=== PATIENT | female | born 1935 | race Caucasian/White ===

== ENCOUNTER 2017-11-22 12:20 | Inpatient (IN) ==
[2017-11-27] MEDS ORDERED: Naloxone Inj 0.4 MG/ML Vial IV.PUSH PRN
[2017-11-27] MEDS ORDERED: Labetalol HCl Inj 100 MG/20 ML Vial IV.PUSH PRN
[2017-11-27] MEDS ORDERED: Morphine Inj 4 MG/ML Vial IV.PUSH PRN ×2
[2017-11-27] MEDS: Famotidine 20 MG Tablet PO SCH ×3 (05:31→20:08)
[2017-11-27] MEDS: Gabapentin 300 MG Capsule PO SCH ×2 (09:09→20:07)
[2017-11-27] MEDS: KCL 20 mEq/NACL 0.45% Inj 1,000 ML IV.CONT SCH ×3 (10:05→20:08)
[2017-11-27] MEDS ORDERED: levETIRAcetam 500mg/100mL Inj 100 ML IV.SIG SCH (11:45)
[2017-11-27] MEDS: Lidocaine 5% Patch T-DERMAL SCH (18:28)
--- NOTE | 2017-11-27 21:33 | P.PNNS ---
Subjective Interval history: Status post evacuation of bilateral subdural hematoma, bur hole, 11/23/2017 11/27/2017: No new complaints. No headache nausea vomiting. Tolerating diet Physical Exam Vital signs: Vital Signs 11/27/17 00:00 11/27/17 01:00 11/27/17 02:00 Temperature 100.4 F H Pulse Rate 64 64 66 Respiratory Rate 23 21 20 Blood Pressure 120/56 L 119/56 L 119/55 L Pulse Oximetry 96 96 97 11/27/17 03:00 11/27/17 04:00 11/27/17 05:00 Temperature 98.7 F Pulse Rate 64 62 68 Respiratory Rate 20 21 21 Blood Pressure 111/53 L 139/63 133/64 Pulse Oximetry 97 98 96 11/27/17 06:00 11/27/17 07:00 11/27/17 08:00 Temperature 98.5 F Pulse Rate 66 68 70 Respiratory Rate 21 30 H 18 Blood Pressure 113/56 L 133/61 142/66 H Pulse Oximetry 94 L 96 97 11/27/17 09:21 11/27/17 12:45 11/27/17 15:30 Temperature 98.9 F Pulse Rate 71 Respiratory Rate 18 20 22 Blood Pressure 116/56 L Pulse Oximetry 97 11/27/17 16:00 11/27/17 20:00 Temperature 98.6 F 99.2 F Pulse Rate 88 82 Respiratory Rate 18 24 Blood Pressure 116/57 L 100/63 Pulse Oximetry 97 97 Intake & Output 11/27/17 11/27/17 11/28/17 06:59 18:59 06:59 Intake Total 840 / 840 Output Total 800 / 800 1100 / 1100 Balance -800 / -800 -260 / -260 Intake: Oral 840 / 840 Output: Urine Amount (Catheter) 800 / 800 1100 / 1100 Female External 800 / 800 1100 / 1100 Other: # Bowel Movements 0 Narrative: Scalp incisions dry and intact Respirations clear nonlabored Heart rate regular Abdomen soft nontender No significant extremity edema No significant skin lesion or rash Awake and alert conversant appropriate. Speech clear Follows commands well Extraocular movements intact Sensory to light touch and motor within normal limits all extremities - Urinary Catheter Management Female External Cath placed during this visit: no Assessment and Plan - Assessment (1) Subdural hematoma, acute Code(s): S06.5X9A - Traumatic subdural hemorrhage with loss of consciousness of unspecified duration, initial encounter Status: Acute - Plan Findings discussed with patient Transfer to regular floor Advance diet and activity as tolerated Continue physical therapy She will need inpatient rehabilitation. She has developed some significant gait problems over the past year or 2 with some limited motion in the right lower extremity, significant bilateral knee arthropathy.
[2017-11-28] MEDS: KCL 20 mEq/NACL 0.45% Inj 1,000 ML IV.CONT SCH (01:43)
--- NOTE | 2017-11-28 05:39 | XR ---
EXAM DATE: 11/28/2017 5:34 AM EDT AGE/SEX: 82 years / Female INDICATIONS: Cough and congestion. CLINICAL DATA: This is the patient's initial encounter. Patient reports that signs and symptoms have been present for 1 day and indicates a pain score of 0/10. MEDICAL/SURGICAL HISTORY: . Deep venous thrombosis. Gastroesophageal reflux disease. Neuropathy . None. COMPARISON: No prior exams available for comparison. FINDINGS: A single AP view of the chest demonstrates the lungs to be symmetrically aerated without evidence of mass, infiltrate or effusion. The cardiomediastinal contours are unremarkable. Moderate degenerative changes in the thoracic spine with mild curvature of the midthoracic spine convex to the right. CONCLUSION: Lungs are clear. Electronically signed by: Buster Johnson MD 11/28/2017 5:37 AM EDT
[2017-11-28 07:37] LABS: Hematocrit 34.2 % (35.0-46.0); Hemoglobin 11.2 gm/dL (11.6-15.3); Mean Corpuscular HGB Conc 32.7 % (32.0-36.0); Mean Corpuscular Hemoglobin 30.3 pg (27.0-34.0); Mean Corpuscular Volume 92.9 fL (80.0-100.0); Mean Platelet Volume 8.8 fL (7.0-11.0); Platelet Count 164 th/mm3 (150-450); Red Blood Count 3.68 mil/mm3 (4.00-5.30); Red Cell Distribution Width 14.6 % (11.6-17.2); White Blood Count 8.1 th/mm3 (4.0-11.0)
[2017-11-28] MEDS: Gabapentin 300 MG Capsule PO SCH (09:00)
[2017-11-28] MEDS: Famotidine 20 MG Tablet PO SCH (09:01)
[2017-11-28 09:13] LABS: Anion Gap 7 meq/L (5-15); Blood Urea Nitrogen 12 mg/dL (7-18); Calcium 8.5 mg/dL (8.5-10.1); Carbon Dioxide 28.8 meq/L (21.0-32.0); Chloride 107 meq/L (98-107); Glomerular Filtration Rate Greater Than 89 mL/min (>89); Glucose,Random 116 mg/dL (74-106); Potassium 4.2 meq/L (3.5-5.1); Sodium 143 meq/L (136-145)
--- NOTE | 2017-11-28 10:40 | P.PNNS ---
Subjective Interval history: 11/28/2017: Patient has no complaint of headache nausea vomiting. She is tolerating diet well. She complains of some soreness along her gluteal-sacral region. Persistent primarily left knee pain which is chronic. She states that she has had chronic difficulty ambulating due to her knees, but now cannot really stand or walk at all. Physical Exam Vital signs: Vital Signs 11/27/17 12:45 11/27/17 15:30 11/27/17 16:00 Temperature 98.9 F 98.6 F Pulse Rate 71 88 Respiratory Rate 20 22 18 Blood Pressure 116/56 L 116/57 L Pulse Oximetry 97 97 11/27/17 20:00 11/27/17 22:11 11/28/17 00:00 Temperature 99.2 F 98.6 F Pulse Rate 82 63 Respiratory Rate 24 18 20 Blood Pressure 100/63 102/55 L Pulse Oximetry 97 95 11/28/17 04:00 11/28/17 09:00 Temperature 97.8 F Pulse Rate 63 Respiratory Rate 18 20 Blood Pressure 118/54 L Pulse Oximetry 99 Intake & Output 11/27/17 11/28/17 11/28/17 18:59 06:59 18:59 Intake Total 945 / 945 1220 / 1220 Output Total 1100 / 1100 1100 / 1100 Balance -155 / -155 120 / 120 Intake: IV 105 / 105 500 / 500 Potassium Chlor 20 mEq/NACL 0. 500 / 500 45% Inj 1,000 ML @ 100 mls/hr IV.CONT .Q10H SHARON Rx#:[id number] Keppra Inj 500 MG In NS Inj 100 105 / 105 ML @ 400 mls/hr IV.SIG Q12H SHARON Rx#:[id number] Oral 840 / 840 720 / 720 Output: Urine 900 / 900 Urine Amount (Catheter) 1100 / 1100 200 / 200 Female External 1100 / 1100 200 / 200 Other: # Bowel Movements 0 Narrative: The scalp incisions are dry. Steri-Strips intact. Caroline intact. No drainage. Respirations are clear and regular Abdomen soft No lower extremity edema Persistent right and left knee contracture with pain with movement. She keeps her right hip and knee internally rotated. Awake and alert conversant appropriate. Speech clear Extraocular movements intact Good strength all extremities except as diminished by her knee pain and contractures. - Urinary Catheter Management Female External Cath placed during this visit: no Assessment and Plan - Assessment (1) Subdural hematoma, acute Code(s): S06.5X9A - Traumatic subdural hemorrhage with loss of consciousness of unspecified duration, initial encounter Status: Acute - Plan Findings discussed with patient She has been transferred to regular floor Advance diet and activity as tolerated Continue physical therapy She will need inpatient rehabilitation. She has developed some significant gait problems over the past year or 2 with some limited motion in the right lower extremity, significant bilateral knee arthropathy. She will eventually need orthopedic evaluation. She apparently was seen initially by an orthopedic surgeon on the [facility] but needs to establish with a surgeon locally.
--- NOTE | 2017-11-28 18:07 | P.PNIM ---
Subjective Interval history: c/o right knee pain. Denies cp/sob, headache Physical Exam Vital signs: Vital Signs 11/27/17 20:00 11/27/17 22:11 11/28/17 00:00 Temperature 99.2 F 98.6 F Pulse Rate 82 63 Respiratory Rate 24 18 20 Blood Pressure 100/63 102/55 L Pulse Oximetry 97 95 11/28/17 04:00 11/28/17 08:00 11/28/17 09:00 Temperature 97.8 F 98.9 F Pulse Rate 63 65 Respiratory Rate 18 20 20 Blood Pressure 118/54 L 151/67 H Pulse Oximetry 99 96 11/28/17 12:00 11/28/17 14:17 11/28/17 16:00 Temperature 98.7 F 98.8 F Pulse Rate 66 75 Respiratory Rate 20 7 L 20 Blood Pressure 115/61 110/57 L Pulse Oximetry 95 96 Intake & Output 11/27/17 11/28/17 11/28/17 18:59 06:59 18:59 Intake Total 945 / 945 1325 / 1325 1200 / 1200 Output Total 1100 / 1100 1100 / 1100 Balance -155 / -155 225 / 225 1200 / 1200 Intake: IV 105 / 105 605 / 605 Potassium Chlor 20 mEq/NACL 0. 500 / 500 45% Inj 1,000 ML @ 100 mls/hr IV.CONT .Q10H SHARON Rx#:[id number] Keppra Inj 500 MG In NS Inj 100 105 / 105 105 / 105 ML @ 400 mls/hr IV.SIG Q12H SHARON Rx#:[id number] Oral 840 / 840 720 / 720 1200 / 1200 Output: Urine 900 / 900 Urine Amount (Catheter) 1100 / 1100 200 / 200 Female External 1100 / 1100 200 / 200 Other: # Bowel Movements 0 - Urinary Catheter Management Female External Cath placed during this visit: no Results - Labs CBC & Chem 7: 11/28/17 07:07 11/28/17 07:07 Laboratory Results - last 24 hr 11/28/17 11/28/17 07:07 07:07 WBC 8.1 RBC 3.68 L Hgb 11.2 L Hct 34.2 L MCV 92.9 MCH 30.3 MCHC 32.7 RDW 14.6 Plt Count 164 MPV 8.8 Sodium 143 Potassium 4.2 Chloride 107 Carbon Dioxide 28.8 Anion Gap 7 BUN 12 Creatinine 0.51 Estimated GFR Greater than 89 Random Glucose 116 H Calcium 8.5 - Imaging Impressions Chest X-Ray 11/28/17 00:00 CONCLUSION: Lungs are clear. Head CT 11/28/17 00:00 CONCLUSION: 1. Improving postoperative changes compared to the prior examination. 2. There continues to be bilateral subdural collections, right greater than left. 8 mm of separation on the right and 7 mm of separation on the left. 3. No new areas of acute hemorrhage are demonstrated. Assessment and Plan - Plan 82 yo female who is transferred from [facility] emergency department to [facility] due to bilateral subdural hematomas. she states that she has had several falls over the last 2-3 months. Says she fell 2 months ago and had scalp laceration repaired. She says she has had increasing difficulty with ambulating and "slips" often. Says she lives alone. She denies headache, CP, SOB, dizziness, syncope, seizure, n/v. 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 INR upon presentation was 3.1. She has received K Centra with normalization of INR. She is admitted to Dr. Dueñas who plans for surgical evacuation of bilateral hematoma. Bilateral subacute subdural hematomas The patient was admitted to the intensive care unit and monitored initially by the atm servicer along with neurosurgery. Placed on Keppra 500 mg IV every 12 hours for seizure prophylaxis. CT cervical spine without any acute abnormalities. It only showed grade 1 anterior listhesis of C4 on C5. The patient status post bilateral bur hole on 11/23. Patient initially coagulopathic with an INR of 3.1 status post K Centra with normalization of the INR. Continue PT/OT. Chronic low back pain Oxycodone as needed for pain. Hold Ultram as this can lower seizure threshold. PT consulted. Resume Neurontin 900 mg twice daily home dose Left knee pain The due to severe also arthritis of the right knee. The patient had an x-ray of bilateral knees which showed chronic degenerative changes likely secondary to osteoarthritis. Consult orthopedic surgery placed by neurosurgery. Likely falls likely bilateral also arthritis is contributing to patient's multiple falls. Acute posthemorrhagic anemia. Patient's hemoglobin dropped down to 11.5 from 13.3 prior to surgical procedure. Suspect acute postop anemia. Hemoglobin remains stable, continue to monitor CBC. Remote history of DVT and PE. The patient was on chronic at the [facility] with warfarin which has been discontinued. The patient is status post K Centra 25 U/kg as well as vitamin K 10 mg IV. GI: P.o. diet as tolerated. FEN/RENAL: Voiding ID: UA negative. No leukocytosis or fever. Monitor for signs and symptoms of infection. HEME: Chronic anticoagulation with warfarin, reportedly for remote history of PE and DVT Warfarin on hold. Received K Centra 25 units/kg. Received vitamin K 10 mg IV. Last INR on 11/23 is 1.1. Code Status: Full code Discussed Condition With: Patient, RN. Discharge Planning: DC pending orthopedic surgery evaluation ordered by neurosurgery.
[2017-11-28] MEDS: Lidocaine 5% Patch T-DERMAL SCH (18:16)
[2017-11-29] MEDS: Gabapentin 300 MG Capsule PO SCH ×3 (00:32→21:43)
[2017-11-29] MEDS: Famotidine 20 MG Tablet PO SCH ×3 (00:32→21:44)
--- NOTE | 2017-11-29 12:49 | P.PNNS ---
Subjective Interval history: This morning the patient is awake and alert sitting up in bed. She is on her cellphone talking with a friend. She denies any headache, dizziness, double or blurry vision, nausea or vomiting. She does say it is sore at the surgical incisions. She continues to have pain to the knees and difficulty with lower extremity movement. <Jun Toledo E - Last Filed: 11/29/17 12:28> Physical Exam Vital signs: Vital Signs 11/28/17 14:17 11/28/17 16:00 11/28/17 20:00 Temperature 98.8 F 98.5 F Pulse Rate 75 68 Respiratory Rate 7 L 20 18 Blood Pressure 110/57 L 117/61 Pulse Oximetry 96 95 11/29/17 00:00 11/29/17 04:00 11/29/17 08:00 Temperature 98.4 F 98.4 F 97.7 F Pulse Rate 74 56 L 88 Respiratory Rate 18 18 20 Blood Pressure 124/62 125/60 Pulse Oximetry 96 97 96 11/29/17 08:02 Temperature Pulse Rate Respiratory Rate 18 Blood Pressure Pulse Oximetry Intake & Output 11/28/17 11/29/17 11/29/17 18:59 06:59 18:59 Intake Total 1200 / 1200 Balance 1200 / 1200 Intake: Oral 1200 / 1200 Narrative: GENERAL: Awake & alert sitting up in bed talking on her cellphone. Affect normal. Readily interacts. No apparent distress. HEENT: Normocephalics. Well approximated bilateral tiarra hole surgical incisions w/dai intact, TC drain insertion site w/steri-strips intact, no drainage, erythema or streaking noted to incisions or insertion site. PERRLA 2 mm brisk, EOMI. MMM & pink, tongue midline to protrusion. MUSCULOSKELETAL: Moves BUE w/o difficulty. Decreased ROM L>R to BLE, knees TTP. NEUROLOGICAL: AAOx3. Speech clear & appropriate. Follows simple commands w/o difficulty. CN II through XII appear grossly intact. Motor strength normal to BUE. Motor strength RLE 4 to 4+/5. LLE motor strength is iliopsoas 1 to 1+/5, quadriceps 1+/5, hamstring 1+ to 2/5, and distally 3/5, patient does have pain w /testing. - Urinary Catheter Management Female External Cath placed during this visit: no <Patrice Toledoyessi Harris - Last Filed: 11/29/17 12:28> Vital signs: Vital Signs 11/29/17 00:00 11/29/17 04:00 11/29/17 08:00 Temperature 98.4 F 98.4 F 97.7 F Pulse Rate 74 56 L 88 Respiratory Rate 18 18 20 Blood Pressure 124/62 125/60 Pulse Oximetry 96 97 96 11/29/17 08:02 11/29/17 12:00 11/29/17 12:45 Temperature 96.9 F L Pulse Rate 63 Respiratory Rate 18 20 Blood Pressure 119/55 L Pulse Oximetry 97 97 11/29/17 13:16 11/29/17 16:00 Temperature 97.6 F Pulse Rate 66 Respiratory Rate 18 20 Blood Pressure 114/56 L Pulse Oximetry 98 Intake & Output 11/29/17 11/29/17 11/30/17 06:59 18:59 06:59 Other: Bladder Irrigation Fluid - Amount Drained Female External 500 # Bowel Movements 0 - Urinary Catheter Management Female External Cath placed during this visit: no <Julian Dueñas - Last Filed: 11/29/17 20:06> Assessment and Plan - Assessment (1) Subdural hematoma, acute Code(s): S06.5X9A - Traumatic subdural hemorrhage with loss of consciousness of unspecified duration, initial encounter Status: Acute - Plan Findings discussed with patient Reviewed CT brain images & report, continued improvement post-operatively, residual subdural fluid R>L, no new haemorrhage. Continue physical therapy. Orthopaedic Surgery evaluation pending. Patient is able to be discharged for inpatient rehab once arrangements made. <Jun Toledo - Last Filed: 11/29/17 12:28> - Assessment (1) Subdural hematoma, acute Code(s): S06.5X9A - Traumatic subdural hemorrhage with loss of consciousness of unspecified duration, initial encounter Status: Acute - Attending Attestation The exam, history, and the medical decision-making described in the above note were completed with the assistance of the mid-level provider. I reviewed and agree with the findings presented. I attest that I had a [id number] encounter with the patient on the same day, and personally performed and documented my assessment and findings in the medical record. Patient remains awake and alert today. No significant headache. She has not had a bowel movement in the past few days. Additional medications prescribed for medicine service Otherwise stable for discharge to inpatient rehabilitation from neurosurgery standpoint. She needs a follow-up CT scan of the head in a couple of weeks. <Julian Dueñas - Last Filed: 11/29/17 20:06>
[2017-11-29] MEDS ORDERED: Polyethylene Glycol 3350 17 GM Packet PO ONE (14:35)
[2017-11-29] MEDS ORDERED: Bisacodyl 10 MG Supp RECTAL PRN (14:35)
--- NOTE | 2017-11-29 15:50 | P.DS ---
Date of admission: 11/22/17 15:46 Primary care physician: Dianna Jimenez MD Attending physician on discharge: Tee Carmen Anticipated date of discharge: 11/29/17 Brief History from admission: The patient is an 82-year-old female who reportedly has experienced several recent falls. She presented to the emergency room today with complaint of approximately 3 days of neck pain and bilateral knee pain with difficulty ambulating. She apparently was seen at an outside hospital yesterday for similar complaints. The patient is apparently normally active and independent. She is a somewhat poor historian. She states that she has been using a walker for 3 days. She indicates problems with chronic back and knee pain. She does not complain of any significant hip pain. No complaint of significant headache, dizziness. Positive generalized fatigue. Patient has limited range of motion of the right greater than left lower extremity on exam. She is very vague regarding how long this is been a problem for her. She does not seem to indicate chronic problems with ambulation. DS: Diagnosis - Discharge Diagnosis (1) Subacute subdural hematoma Status: Acute (2) Osteoarthritis of knees, bilateral Status: Chronic (3) Postoperative anemia due to acute blood loss Status: Resolved DS: Summary Hospital Course: 82 yo female who is transferred from [facility] emergency department to [facility] due to bilateral subdural hematomas. she states that she has had several falls over the last 2-3 months. Says she fell 2 months ago and had scalp laceration repaired. She says she has had increasing difficulty with ambulating and "slips" often. Says she lives alone. She denies headache, CP, SOB, dizziness, syncope, seizure, n/v. 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 INR upon presentation was 3.1. She has received K Centra with normalization of INR. She is admitted to Dr. Dueñas who plans for surgical evacuation of bilateral hematoma. Bilateral subacute subdural hematomas The patient was admitted to the intensive care unit and monitored initially by the car head liner installer along with neurosurgery. Placed on Keppra 500 mg IV every 12 hours for seizure prophylaxis. CT cervical spine without any acute abnormalities. It only showed grade 1 anterior listhesis of C4 on C5. The patient status post bilateral bur hole on 11/23. Patient initially coagulopathic with an INR of 3.1 status post K Centra with normalization of the INR. PT/OT ordered. Chronic low back pain Oxycodone as needed for pain. Hold Ultram as this can lower seizure threshold. PT consulted. Resumed Neurontin 900 mg twice daily home dose Left knee pain The due to severe also arthritis of the right knee. The patient had an x-ray of bilateral knees which showed chronic degenerative changes likely secondary to osteoarthritis. Consult orthopedic surgery placed by neurosurgery. Likely falls likely bilateral also arthritis is contributing to patient's multiple falls. Acute posthemorrhagic anemia. Patient's hemoglobin dropped down to 11.5 from 13.3 prior to surgical procedure. Suspect acute postop anemia. Hemoglobin remains stable, continue to monitor CBC. Remote history of DVT and PE. The patient was on chronic at the [facility] with warfarin which has been discontinued. The patient is status post K Centra 25 U/kg as well as vitamin K 10 mg IV. GI: P.o. diet as tolerated. ID: UA negative. No leukocytosis or fever. Monitor for signs and symptoms of infection. Chronic anticoagulation with warfarin, reportedly for remote history of PE and DVT Warfarin on hold. Received K Centra 25 units/kg. Received vitamin K 10 mg IV. Last INR on 11/23 is 1.1. - Time Spent with Patient Total time spent providing and/or coordinating discharge services: Exam Vital signs: Vital Signs 11/28/17 16:00 11/28/17 20:00 11/29/17 00:00 Temperature 98.8 F 98.5 F 98.4 F Pulse Rate 75 68 74 Respiratory Rate 20 18 18 Blood Pressure 110/57 L 117/61 Pulse Oximetry 96 95 96 11/29/17 04:00 11/29/17 08:00 11/29/17 08:02 Temperature 98.4 F 97.7 F Pulse Rate 56 L 88 Respiratory Rate 18 20 18 Blood Pressure 124/62 125/60 Pulse Oximetry 97 96 11/29/17 12:00 11/29/17 12:45 11/29/17 13:16 Temperature 96.9 F L Pulse Rate 175 H Respiratory Rate 20 18 Blood Pressure 119/55 L Pulse Oximetry 97 97 Intake & Output 11/28/17 11/29/17 11/29/17 18:59 06:59 18:59 Intake Total 1305 / 1305 Balance 1305 / 1305 Intake: IV 105 / 105 Keppra Inj 500 MG In NS Inj 100 105 / 105 ML @ 400 mls/hr IV.SIG Q12H SHARON Rx#:[id number] Oral 1200 / 1200 Narrative: GENERAL: Awake & alert sitting up in bed . Affect normal. Readily interacts. No apparent distress. HEENT: Normocephalics. Well approximated bilateral tiarra hole surgical incisions w/dai intact, TC drain insertion site w/steri-strips intact, no drainage, erythema or streaking noted to incisions or insertion site. PERRLA 2 mm brisk, EOMI. MMM & pink, tongue midline to protrusion. MUSCULOSKELETAL: Moves BUE w/o difficulty. Decreased ROM L>R to BLE, knees TTP. NEUROLOGICAL: AAOx3. Speech clear & appropriate. Follows simple commands w/o difficulty. CN II through XII appear grossly intact. Motor strength normal to BUE. Motor strength RLE 4 to 4+/5. LLE motor strength is iliopsoas 1 to 1+/5, quadriceps 1+/5, hamstring 1+ to 2/5, and distally 3/5, patient does have pain w /testing. Results Procedures completed during hospitalization: Bilateral tiarra hole for evacuation subdural hematoma - Impressions ITS Impressions Chest X-Ray 11/28/17 00:00 CONCLUSION: Lungs are clear. Head CT 11/28/17 00:00 CONCLUSION: 1. Improving postoperative changes compared to the prior examination. 2. There continues to be bilateral subdural collections, right greater than left. 8 mm of separation on the right and 7 mm of separation on the left. 3. No new areas of acute hemorrhage are demonstrated. Cervical spine x-ray. Degenerative changes. Cerebellar tonsils normal anatomic position. Hip pelvis x-ray. Degenerative changes at the hips been worse on the right. Bilateral knee x-rays Degenerative changes. Lumbar spine MRI. Degenerative changes in the lumbar spine with a generous spinal canal. No evidence of compression fracture. Thoracic spine MRI. Number. Thoracic cord without stenosis or syrinx. Cervical spine CT. No acute cervical spine abnormality is identified. Grade 1 anterolisthesis of C4 on C5 secondary to facet arthrosis. No canal stenosis identified. There are multiple areas of neural foraminal narrowing identified. Head CT on admission. Findings consistent with large bilateral subacute subdural hematomas measuring 1.4 cm on the right and 1.1 cm on the left. No significant subfalcine shift or uncal herniation although lateral ventricles are very small in size bilaterally. Discharge Plan - Discharge Disposition Patient Disposition: [facility] Rehab Inpatient - Discharge Condition Condition: Stable - Discharge Order Discharge Orders: Discharge Order (Routine); Ordered 11/29/17 Ordered By: Tee Carmen - Discharge Details Anticipated Discharge Date: 11/29/17 - Physicians Team Primary Care Provider: Dianna Jimenez Attending Provider: Julian Dueñas Other Providers: Rodrick More MD ; Sheila Mares MD ; Shaka Stewart MD ; Tee Carmen MD - Rxs /Orders / Referrals /Forms Prescriptions: New levetiracetam [Keppra] 500 mg Tablet 500 mg PO BID Qty: 60 RF: 0 Continue gabapentin 300 mg Tablet Extended Release 24 Hr 900 mg PO BID oxycodone-acetaminophen 5-325 mg Tablet 1 tab PO Q4H PRN (Reason: Pain) ranitidine HCl 150 mg Tablet 150 mg PO BID Discontinued diclofenac sodium 75 mg Tablet,Delayed Release (Dr/Ec) 75 mg PO DAILY tramadol 50 mg Tablet 50 mg PO BID PRN (Reason: Pain) warfarin 5 mg Tablet 5 mg PO DAILY Referrals: Dianna Jimenez MD [Primary Care Provider] - See Instructions ( Please call the physician's office to book the appointment to be seen within [1 week]. The patient will need orthopedic surgery evaluation if not seen during rehab stay.) Julian Dueñas MD [NEUROSURGERY] - See Instructions ( Please call the physician's office to book the appointment to be seen within [1 week].) - Discharge Instructions Additional Instructions: Patient will need an orthopedic surgery consultation or referral if not seen prior to DC.
[2017-11-29] MEDS: Lidocaine 5% Patch T-DERMAL SCH (17:12)
[2017-11-29] MEDS: levETIRAcetam 500 MG Tablet PO SCH (21:44)
[2017-11-29] MEDS: Senna/Docusate Sodium 8.6/50 MG Tablet PO SCH (21:44)
[2017-11-30] MEDS: KCL 20 mEq/NACL 0.45% Inj 1,000 ML IV.CONT SCH ×5 (05:22→19:11)
[2017-11-30] MEDS: Famotidine 20 MG Tablet PO SCH ×2 (09:28→20:29)
[2017-11-30] MEDS: Senna/Docusate Sodium 8.6/50 MG Tablet PO SCH ×2 (09:28→20:29)
[2017-11-30] MEDS: levETIRAcetam 500 MG Tablet PO SCH ×2 (09:28→20:29)
[2017-11-30] MEDS: Gabapentin 300 MG Capsule PO SCH ×2 (09:29→20:29)
--- NOTE | 2017-11-30 16:15 | P.PNNS ---
Subjective Interval history: No new complaints. No headache No dizziness Still no bowel movement Physical Exam Vital signs: Vital Signs 11/29/17 20:00 11/30/17 00:00 11/30/17 04:00 Temperature 98.5 F 98.0 F 97.6 F Pulse Rate 73 65 68 Respiratory Rate 20 16 16 Blood Pressure 120/55 L 122/60 131/63 Pulse Oximetry 95 97 99 11/30/17 05:00 11/30/17 08:00 11/30/17 12:00 Temperature 98.4 F 98.1 F Pulse Rate 63 55 L 73 Respiratory Rate 16 17 Blood Pressure 136/74 126/72 Pulse Oximetry 98 98 Intake & Output 11/29/17 11/30/17 11/30/17 18:59 06:59 18:59 Output Total 700 / 700 Balance -700 / -700 Output: Urine 700 / 700 Other: Bladder Irrigation Fluid - Amount Drained Female External 500 # Bowel Movements 0 Narrative: Awake and alert oriented conversant appropriate Speech clear Extraocular movements intact Facial motor movements symmetric Sensation intact light touch all extremities Moves all extremities with good strength to command Scalp incision remains dry and intact - Urinary Catheter Management Female External Cath placed during this visit: no Assessment and Plan - Assessment (1) Subdural hematoma, acute Code(s): S06.5X9A - Traumatic subdural hemorrhage with loss of consciousness of unspecified duration, initial encounter Status: Acute - Plan Findings discussed with patient again today Reviewed CT brain results with patient: Continued improvement post-operatively, residual subdural fluid R>L, no new haemorrhage. Continue physical therapy. Additional medications for constipation. Patient is able to be discharged for inpatient rehab once arrangements made.
[2017-11-30] MEDS ORDERED: Polyethylene Glycol 3350 17 GM Packet PO ONE (16:46)
--- NOTE | 2017-11-30 16:53 | P.PNIM ---
Subjective Interval history: c/o constipation. Denies dental pain, nausea or vomiting. Physical Exam Vital signs: Vital Signs 11/29/17 20:00 11/30/17 00:00 11/30/17 04:00 Temperature 98.5 F 98.0 F 97.6 F Pulse Rate 73 65 68 Respiratory Rate 20 16 16 Blood Pressure 120/55 L 122/60 131/63 Pulse Oximetry 95 97 99 11/30/17 05:00 11/30/17 08:00 11/30/17 12:00 Temperature 98.4 F 98.1 F Pulse Rate 63 55 L 73 Respiratory Rate 16 17 Blood Pressure 136/74 126/72 Pulse Oximetry 98 98 Intake & Output 11/29/17 11/30/17 11/30/17 18:59 06:59 18:59 Output Total 700 / 700 Balance -700 / -700 Output: Urine 700 / 700 Other: Bladder Irrigation Fluid - Amount Drained Female External 500 # Voids 1 # Bowel Movements 0 Narrative: GENERAL: Awake & alert sitting up in bed . Affect normal. Readily interacts. No apparent distress. HEENT: Normocephalics. Well approximated bilateral tiarra hole surgical incisions w/dai intact, TC drain insertion site w/steri-strips intact, no drainage, erythema or streaking noted to incisions or insertion site. PERRLA 2 mm brisk, EOMI. MMM & pink, tongue midline to protrusion. MUSCULOSKELETAL: Moves BUE w/o difficulty. Decreased ROM L>R to BLE, knees TTP. NEUROLOGICAL: AAOx3. Speech clear & appropriate. Follows simple commands w/o difficulty. CN II through XII appear grossly intact. Motor strength normal to BUE. Motor strength RLE 4 to 4+/5. LLE motor strength is iliopsoas 1 to 1+/5, quadriceps 1+/5, hamstring 1+ to 2/5, and distally 3/5, patient does have pain w /testing. - Urinary Catheter Management Female External Cath placed during this visit: no Results - Labs CBC & Chem 7: 11/28/17 07:07 11/28/17 07:07 - Procedures Bilateral tiarra hole for evacuation subdural hematoma Assessment and Plan - Assessment (1) Subacute subdural hematoma Code(s): S06.5X9A - Traumatic subdural hemorrhage with loss of consciousness of unspecified duration, initial encounter Status: Acute (2) Osteoarthritis of knees, bilateral Code(s): M17.0 - Bilateral primary osteoarthritis of knee Status: Chronic (3) Postoperative anemia due to acute blood loss Code(s): D62 - Acute posthemorrhagic anemia Status: Resolved - Plan 82 yo female who is transferred from [facility] emergency department to [facility] due to bilateral subdural hematomas. she states that she has had several falls over the last 2-3 months. Says she fell 2 months ago and had scalp laceration repaired. She says she has had increasing difficulty with ambulating and "slips" often. Says she lives alone. She denies headache, CP, SOB, dizziness, syncope, seizure, n/v. 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 INR upon presentation was 3.1. She has received K Centra with normalization of INR. She is admitted to Dr. Dueñas who plans for surgical evacuation of bilateral hematoma. Bilateral subacute subdural hematomas The patient was admitted to the intensive care unit and monitored initially by the logging supervisor along with neurosurgery. Placed on Keppra 500 mg IV every 12 hours for seizure prophylaxis. CT cervical spine without any acute abnormalities. It only showed grade 1 anterior listhesis of C4 on C5. The patient status post bilateral bur hole on 11/23. Patient initially coagulopathic with an INR of 3.1 status post K Centra with normalization of the INR. Continue PT/OT. Chronic low back pain Oxycodone as needed for pain. Hold Ultram as this can lower seizure threshold. PT consulted. Resume Neurontin 900 mg twice daily home dose Left knee pain The due to severe also arthritis of the right knee. The patient had an x-ray of bilateral knees which showed chronic degenerative changes likely secondary to osteoarthritis. Consult orthopedic surgery placed by neurosurgery. Likely falls likely bilateral also arthritis is contributing to patient's multiple falls. Acute posthemorrhagic anemia. Patient's hemoglobin dropped down to 11.5 from 13.3 prior to surgical procedure. Suspect acute postop anemia. Hemoglobin remains stable, continue to monitor CBC. Remote history of DVT and PE. The patient was on chronic at the [facility] with warfarin which has been discontinued. The patient is status post K Centra 25 U/kg as well as vitamin K 10 mg IV. GI: P.o. diet as tolerated. FEN/RENAL: Voiding ID: UA negative. No leukocytosis or fever. Monitor for signs and symptoms of infection. HEME: Chronic anticoagulation with warfarin, reportedly for remote history of PE and DVT Warfarin on hold. Received K Centra 25 units/kg. Received vitamin K 10 mg IV. Last INR on 11/23 is 1.1. Discharge Planning: Dc once patient has a BM.
[2017-11-30] MEDS: Lidocaine 5% Patch T-DERMAL SCH (17:41)
[2017-12-01] MEDS: KCL 20 mEq/NACL 0.45% Inj 1,000 ML IV.CONT SCH ×2 (04:05→18:05)
[2017-12-01] MEDS: levETIRAcetam 500 MG Tablet PO SCH ×2 (08:08→20:59)
[2017-12-01] MEDS: Gabapentin 300 MG Capsule PO SCH ×2 (08:09→20:59)
[2017-12-01] MEDS: Famotidine 20 MG Tablet PO SCH ×2 (08:09→20:50)
[2017-12-01] MEDS: Senna/Docusate Sodium 8.6/50 MG Tablet PO SCH ×2 (08:09→21:00)
--- NOTE | 2017-12-01 10:07 | P.PN ---
Subjective Interval history: Patient is resting well, denies any current headaches. She is alert and oriented 3. Optimistic about transfer. She states the problem with her walking has more to do with her left knee than anything else. Left knee is arthritic and painful and she needs a knee replacement. Physical Exam Vital signs: Vital Signs 11/27/17 00:00 11/27/17 01:00 11/27/17 02:00 Temperature 100.4 F H Pulse Rate 64 64 66 Respiratory Rate 23 21 20 Blood Pressure 120/56 L 119/56 L 119/55 L Pulse Oximetry 96 96 97 11/27/17 03:00 11/27/17 04:00 11/27/17 05:00 Temperature 98.7 F Pulse Rate 64 62 68 Respiratory Rate 20 21 21 Blood Pressure 111/53 L 139/63 133/64 Pulse Oximetry 97 98 96 11/27/17 06:00 11/27/17 07:00 11/27/17 08:00 Temperature 98.5 F Pulse Rate 66 68 70 Respiratory Rate 21 30 H 18 Blood Pressure 113/56 L 133/61 142/66 H Pulse Oximetry 94 L 96 97 11/27/17 09:21 11/27/17 12:45 11/27/17 15:30 Temperature 98.9 F Pulse Rate 71 Respiratory Rate 18 20 22 Blood Pressure 116/56 L Pulse Oximetry 97 11/27/17 16:00 Temperature 98.6 F Pulse Rate 88 Respiratory Rate 18 Blood Pressure 116/57 L Pulse Oximetry 97 Intake & Output 11/26/17 11/27/17 11/27/17 18:59 06:59 18:59 Output Total 800 / 800 Balance -800 / -800 Output: Urine Amount (Catheter) 800 / 800 Female External 800 / 800 Narrative: GENERAL: Alert and oriented 3, pleasant affect SKIN: Warm and dry. Coronal haircut on scalp indicates no neurosurgical intervention, Band-Aid in place HEAD: Normocephalic. EYES: No scleral icterus. No injection or drainage. NECK: Supple, trachea midline. No JVD or lymphadenopathy. CARDIOVASCULAR: Frequent PVCs, 2 out of 6 systolic murmur, gallops, or rubs. RESPIRATORY: Breath sounds equal bilaterally. No accessory muscle use. GASTROINTESTINAL: Abdomen soft, non-tender, nondistended. MUSCULOSKELETAL: No cyanosis, or edema. BACK: Nontender without obvious deformity. No CVA tenderness. - Urinary Catheter Management Female External Cath placed during this visit: no Results - Labs CBC & Chem 7: 11/24/17 04:39 11/24/17 04:39 Laboratory Results - last 24 hr 11/23/17 11/24/17 11/24/17 02:55 04:39 04:39 WBC 10.6 RBC 3.78 L Hgb 11.5 L Hct 34.5 L MCV 91.3 MCH 30.3 MCHC 33.2 RDW 14.7 Plt Count 212 MPV 8.4 Neut % (Auto) 78.1 H Lymph % (Auto) 8.1 L Starke % (Auto) 13.4 H Eos % (Auto) 0.1 Baso % (Auto) 0.3 Neut # (Auto) 8.3 H Lymph # (Auto) 0.9 L Starke # (Auto) 1.4 H Eos # (Auto) 0.0 Baso # (Auto) 0.0 CBC Comment DIFF FINAL Sodium 139 Potassium 4.6 D Chloride 106 Carbon Dioxide 24.1 Anion Gap 9 BUN 25 H Creatinine 0.58 Estimated GFR 100 Random Glucose 100 Calcium 8.4 L D Nasal Screen MRSA (PCR) MRSA NOT DETECTED Assessment and Plan - Plan Bilateral subacute subdural hematomas Patient fell and hit stone with her head 5 weeks ago requiring dai She is chronically on warfarin, likely had a slow bleed Subdural hematomas were evacuated by Dr. Dueñas on 11/23/2017 Patient has done well postop Stable for transfer to [facility] floor Continue Keppra 500 mg IV every 12 hours for seizure prophylaxis Chronic left knee pain Patient is in need of the left knee replacement, unable to be scheduled till February It has gotten so bad that she is unable to walk due to the pain We will test her on lidocaine patch to the left knee, she has never tried this before Chronic low back pain Oxycodone as needed for pain Continue Neurontin 900 mg twice daily Continue PT as tolerated Chronic warfarin use Held due to presence of subdural hematomas Distant history of PE and DVT Most recent INR is 1.2 DVT prophylaxis SCDs
--- NOTE | 2017-12-01 10:11 | P.PNOP ---
Subjective Interval history: Patient originally admitted for subdural bleeding. Surgical intervention was performed by neurosurgery. She is continuing to progress well but continues to have difficulty ambulating due to pain in bilateral knees. She has had chronic osteoarthritis of bilateral knees and is seen Dr. Wall and Dr. Russell in [facility] for her discomfort. She denies any new injuries to the knees. Physical Exam Vital signs: Vital Signs 11/30/17 12:00 11/30/17 16:00 11/30/17 16:50 Temperature 98.1 F 98.2 F Pulse Rate 73 74 56 L Respiratory Rate 17 17 Blood Pressure 126/72 122/55 L Pulse Oximetry 98 96 11/30/17 21:00 11/30/17 23:00 12/01/17 00:45 Temperature 98.7 F 98 F Pulse Rate 70 71 66 Respiratory Rate 19 20 Blood Pressure 145/71 H 140/67 Pulse Oximetry 94 L 95 12/01/17 04:50 12/01/17 05:15 12/01/17 08:00 Temperature 97.8 F 100.0 F H Pulse Rate 64 74 79 Respiratory Rate 20 20 Blood Pressure 140/60 136/77 Pulse Oximetry 95 99 Intake & Output 11/30/17 12/01/17 12/01/17 18:59 06:59 18:59 Intake Total 1000 / 1000 2225 / 2225 Output Total 400 / 400 Balance 1000 / 1000 1825 / 1825 Intake: IV 1000 / 1000 1000 / 1000 Potassium Chlor 20 mEq/NACL 0. 1000 / 1000 1000 / 1000 45% Inj 1,000 ML @ 100 mls/hr IV.CONT .Q10H SHARON Rx#:[id number] Oral 1225 / 1225 Output: Urine Amount (Catheter) 400 / 400 Female External 400 / 400 Other: # Voids 3 1 # Incontinent Voids 2 Date of Last Bowel Movement 12/01/17 # Bowel Movements 1 - Constitutional no acute distress - Routine Extremities Exam Comments: Bilateral upper extremities: Full range of motion neurovascularly intact Bilateral lower extremities: No pain with hip range of motion. She has significant stiffness and crepitus through bilateral knees. Knees are stable to varus and valgus stresses. Both knees are unable to fully extend. Knee range of motion is approximately 10 short of extension to 45 bilaterally. Distally she has intact sensation bilateral lower extremities with active dorsiflexion plantar flexion of the foot. Distal pulses are intact and good capillary refills - Urinary Catheter Management Female External Cath placed during this visit: no Results - Labs CBC & Chem 7: 11/28/17 07:07 11/28/17 07:07 - Imaging Bilateral knee x-rays with AP, lateral and sunrise views show severe osteoarthritis of tricompartmental joints and bilateral knees. No acute fractures or dislocations are noted - Procedures Bilateral tiarra hole for evacuation subdural hematoma Assessment and Plan - Problem List (1) Osteoarthritis of knees, bilateral Code(s): M17.0 - Bilateral primary osteoarthritis of knee Status: Chronic - Assessment and Plan Bilateral osteoarthritis of knees It is recommended the physical therapy work with her to help with extension and flexion of knees and to help with gait. Previous injections showed only minimal relief. It was recommended at one point for bilateral total knee arthroplasties. She was unable to do it at that time due to her need to take care of him. It is recommended that she continue to work with physical therapy and follow-up in outpatient setting and repeat injections of the knees may be performed at that time. If she is continuing to have difficulty ambulating I would recommend using a walker to help with stability and balance.
--- NOTE | 2017-12-01 12:29 | P.PNNS ---
Subjective Interval history: Status post evacuation of bilateral subdural hematoma, bur hole, 11/23/2017 11/27/2017: No new complaints. No headache nausea vomiting. Tolerating diet 11/28/2017: Patient has no complaint of headache nausea vomiting. She is tolerating diet well. She complains of some soreness along her gluteal-sacral region. Persistent primarily left knee pain which is chronic. She states that she has had chronic difficulty ambulating due to her knees, but now cannot really stand or walk at all. 11/29: This morning the patient is awake and alert sitting up in bed. She is on her cellphone talking with a friend. She denies any headache, dizziness, double or blurry vision, nausea or vomiting. She does say it is sore at the surgical incisions. She continues to have pain to the knees and difficulty with lower extremity movement. 11/30: No new complaints. No headache No dizziness Still no bowel movement 12/01: Patient asleep when seen. Awakens to voice and interacts but quickly drifts back off to sleep. Denies any headache or dizziness. She does say she has a cough and has had nausea. She denied any shortness of breath, chest pain, palpitations, irregular heartbeat, abdominal pain, vomiting or dysuria. She follows commands, although limited movement of lower extremities due to drowsiness. No apparent change in muscle strength. <Jun Toledo E - Last Filed: 12/01/17 12:35> Physical Exam Vital signs: Vital Signs 11/30/17 16:00 11/30/17 16:50 11/30/17 21:00 Temperature 98.2 F 98.7 F Pulse Rate 74 56 L 70 Respiratory Rate 17 19 Blood Pressure 122/55 L 145/71 H Pulse Oximetry 96 94 L 11/30/17 23:00 12/01/17 00:45 12/01/17 04:50 Temperature 98 F Pulse Rate 71 66 64 Respiratory Rate 20 Blood Pressure 140/67 Pulse Oximetry 95 12/01/17 05:15 12/01/17 08:00 12/01/17 11:34 Temperature 97.8 F 100.0 F H 100.9 F H Pulse Rate 74 83 75 Respiratory Rate 20 20 20 Blood Pressure 140/60 136/77 133/65 Pulse Oximetry 95 99 96 Intake & Output 11/30/17 12/01/17 12/01/17 18:59 06:59 18:59 Intake Total 1000 / 1000 2225 / 2225 Output Total 400 / 400 Balance 1000 / 1000 1825 / 1825 Intake: IV 1000 / 1000 1000 / 1000 Potassium Chlor 20 mEq/NACL 0. 1000 / 1000 1000 / 1000 45% Inj 1,000 ML @ 100 mls/hr IV.CONT .Q10H HSARON Rx#:[id number] Oral 1225 / 1225 Output: Urine Amount (Catheter) 400 / 400 Female External 400 / 400 Other: # Voids 3 1 # Incontinent Voids 2 Date of Last Bowel Movement 12/01/17 # Bowel Movements 1 Narrative: GENERAL: Drowsy, awakens to voice, readily drifts back off to sleep. Affect flat. Readily interacts. No apparent distress. HEENT: Normocephalic. Well approximated bilateral tiarra hole surgical incisions w /dai intact, TC drain insertion site w/steri-strips intact, no drainage, erythema or streaking noted to incisions or insertion site. PERRLA 2 mm brisk, EOMI. MMM & pink, tongue midline to protrusion. RESPIRATORY: Clear anteriorly but decreased posteriorly, equal excursion, nonlaboured, on NC. CARDIOVASCULAR: S1S2 w/RRR w/grade II-III/ murmur. GASTROINTESTINAL: Abdomen soft, nontender, positive bowel sounds. GENITOURINARY: External female catheter in place. MUSCULOSKELETAL: Moves BUE w/o difficulty. Decreased ROM L>R to BLE, knees TTP. NEUROLOGICAL: Drowsy, opens eyes to voice. Readily drifts back to sleep. PERRLA 2 mm brisk, EOMI. Tongue midline to protrusion. Oriented to person, place & time. Speech clear & appropriate. Follows simple commands w/o difficulty. Motor strength normal to BUE. Motor strength BLE appears unchanged but patient drowsy and not fully participating, also w/pain upon testing. - Urinary Catheter Management Female External Cath placed during this visit: no <Jun Toledo E - Last Filed: 12/01/17 12:35> Vital signs: Vital Signs 11/30/17 21:00 11/30/17 23:00 12/01/17 00:45 Temperature 98.7 F 98 F Pulse Rate 70 71 66 Respiratory Rate 19 20 Blood Pressure 145/71 H 140/67 Pulse Oximetry 94 L 95 12/01/17 04:50 12/01/17 05:15 12/01/17 08:00 Temperature 97.8 F 100.0 F H Pulse Rate 64 74 83 Respiratory Rate 20 20 Blood Pressure 140/60 136/77 Pulse Oximetry 95 99 12/01/17 11:34 12/01/17 12:00 12/01/17 15:00 Temperature 100.9 F H 99.4 F Pulse Rate 75 72 75 Respiratory Rate 20 20 Blood Pressure 133/65 125/65 Pulse Oximetry 96 97 12/01/17 16:00 Temperature Pulse Rate 67 Respiratory Rate Blood Pressure Pulse Oximetry Intake & Output 12/01/17 12/01/17 12/02/17 06:59 18:59 06:59 Intake Total 3225 / 3225 Output Total 400 / 400 Balance 2825 / 2825 Intake: IV 1999 Potassium Chlor 20 mEq/NACL 0. 1999 45% Inj 1,000 ML @ 100 mls/hr IV.CONT .Q10H SHARON Rx#:[id number] Oral 1225 / 1225 Output: Urine Amount (Catheter) 400 / 400 Female External 400 / 400 Other: # Voids 1 4 # Incontinent Voids 2 Date of Last Bowel Movement 12/01/17 12/01/17 # Bowel Movements 1 1 # Incontinent Bowel Movements 1 - Urinary Catheter Management Female External Cath placed during this visit: no <Julian Dueñas - Last Filed: 12/01/17 20:19> Assessment and Plan - Assessment (1) Subdural hematoma, acute Code(s): S06.5X9A - Traumatic subdural hemorrhage with loss of consciousness of unspecified duration, initial encounter Status: Acute - Plan Impression: Patient is drowsy this morning. Does interact. Oriented to person, place & time. No change in muscle strength. W/fever of 100.[address] brain w/improving post-op changes, residual bilateral subdural fluid R>L, no new haemorrhage noted. Plan: Discussed plan of care w/patient who verbalised her understanding. Discussed plan of care w/Nursing. Continue physical therapy. Will keep patient in [place] at present due to temp. She needs a follow-up CT scan of the head in a couple of weeks. CXR, CBC & UA now due to 100.[address] morning[address] brain w/o contrast. <Paris,Jun E - Last Filed: 12/01/17 12:35> - Assessment (1) Subdural hematoma, acute Code(s): S06.5X9A - Traumatic subdural hemorrhage with loss of consciousness of unspecified duration, initial encounter Status: Acute - Attending Attestation The exam, history, and the medical decision-making described in the above note were completed with the assistance of the mid-level provider. I reviewed and agree with the findings presented. I attest that I had a [id number] encounter with the patient on the same day, and personally performed and documented my assessment and findings in the medical record. Patient was a little more lethargic earlier this morning. She is now more alert. Scalp dressing dry Speech is clear Appears generally fatigued Urinalysis positive for UTI. Antibiotics started per medicine service Discussed with patient Positive bowel movement today Possible discharge to inpatient rehab soon if no further problems develop. <Julian Dueñas B - Last Filed: 12/01/17 20:19>
[2017-12-01 13:06] LABS: Hematocrit 37.7 % (35.0-46.0); Hemoglobin 12.9 gm/dL (11.6-15.3); Mean Corpuscular HGB Conc 34.2 % (32.0-36.0); Mean Corpuscular Hemoglobin 31.4 pg (27.0-34.0); Mean Corpuscular Volume 91.9 fL (80.0-100.0); Mean Platelet Volume 8.1 fL (7.0-11.0); Platelet Count 235 th/mm3 (150-450); Red Cell Distribution Width 14.3 % (11.6-17.2); White Blood Count 15.8 th/mm3 (4.0-11.0)
--- NOTE | 2017-12-01 14:58 | P.PNIM ---
Subjective Interval history: low grade fever of 100.9 this am. Patient states she is coughing some. Denies abdominal pain, nausea, vomiting or diarrhea. Physical Exam Vital signs: Vital Signs 11/30/17 16:00 11/30/17 16:50 11/30/17 21:00 Temperature 98.2 F 98.7 F Pulse Rate 74 56 L 70 Respiratory Rate 17 19 Blood Pressure 122/55 L 145/71 H Pulse Oximetry 96 94 L 11/30/17 23:00 12/01/17 00:45 12/01/17 04:50 Temperature 98 F Pulse Rate 71 66 64 Respiratory Rate 20 Blood Pressure 140/67 Pulse Oximetry 95 12/01/17 05:15 12/01/17 08:00 12/01/17 11:34 Temperature 97.8 F 100.0 F H 100.9 F H Pulse Rate 74 83 75 Respiratory Rate 20 20 20 Blood Pressure 140/60 136/77 133/65 Pulse Oximetry 95 99 96 Intake & Output 11/30/17 12/01/17 12/01/17 18:59 06:59 18:59 Intake Total 1000 / 1000 2225 / 2225 Output Total 400 / 400 Balance 1000 / 1000 1825 / 1825 Intake: IV 1000 / 1000 1000 / 1000 Potassium Chlor 20 mEq/NACL 0. 1000 / 1000 1000 / 1000 45% Inj 1,000 ML @ 100 mls/hr IV.CONT .Q10H SHARON Rx#:[id number] Oral 1225 / 1225 Output: Urine Amount (Catheter) 400 / 400 Female External 400 / 400 Other: # Voids 3 1 # Incontinent Voids 2 Date of Last Bowel Movement 12/01/17 12/01/17 # Bowel Movements 1 1 # Incontinent Bowel Movements 1 Narrative: GENERAL: Drowsy, awakens to voice, readily drifts back off to sleep. Affect flat. Readily interacts. No apparent distress. HEENT: Normocephalic. Well approximated bilateral tiarra hole surgical incisions w /dai intact, TC drain insertion site w/steri-strips intact, no drainage, erythema or streaking noted to incisions or insertion site. PERRLA 2 mm brisk, EOMI. MMM & pink, tongue midline to protrusion. RESPIRATORY: Clear anteriorly but decreased posteriorly, equal excursion, nonlaboured, on NC. CARDIOVASCULAR: S1S2 w/RRR w/grade II-III/ murmur. GASTROINTESTINAL: Abdomen soft, nontender, positive bowel sounds. GENITOURINARY: External female catheter in place. MUSCULOSKELETAL: Moves BUE w/o difficulty. Decreased ROM L>R to BLE, knees TTP. NEUROLOGICAL: Drowsy, opens eyes to voice. Readily drifts back to sleep. PERRLA 2 mm brisk, EOMI. Tongue midline to protrusion. Oriented to person, place & time. Speech clear & appropriate. Follows simple commands w/o difficulty. Motor strength normal to BUE. Motor strength BLE appears unchanged but patient drowsy and not fully participating, also w/pain upon testing. - Urinary Catheter Management Female External Cath placed during this visit: no Results - Labs CBC & Chem 7: 12/01/17 12:39 11/28/17 07:07 Laboratory Results - last 24 hr 12/01/17 12:39 WBC 15.8 H RBC 4.10 Hgb 12.9 Hct 37.7 MCV 91.9 MCH 31.4 MCHC 34.2 RDW 14.3 Plt Count 235 D MPV 8.1 - Procedures Bilateral tiarra hole for evacuation subdural hematoma Assessment and Plan - Assessment (1) Subacute subdural hematoma Code(s): S06.5X9A - Traumatic subdural hemorrhage with loss of consciousness of unspecified duration, initial encounter Status: Acute (2) Osteoarthritis of knees, bilateral Code(s): M17.0 - Bilateral primary osteoarthritis of knee Status: Chronic (3) Postoperative anemia due to acute blood loss Code(s): D62 - Acute posthemorrhagic anemia Status: Resolved (4) Low grade fever Code(s): R50.9 - Fever, unspecified Status: Acute - Plan 82 yo female who is transferred from [facility] emergency department to [facility] due to bilateral subdural hematomas. she states that she has had several falls over the last 2-3 months. Says she fell 2 months ago and had scalp laceration repaired. She says she has had increasing difficulty with ambulating and "slips" often. Says she lives alone. She denies headache, CP, SOB, dizziness, syncope, seizure, n/v. 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 INR upon presentation was 3.1. She has received K Centra with normalization of INR. She is admitted to Dr. Dueñas who plans for surgical evacuation of bilateral hematoma. Bilateral subacute subdural hematomas The patient was admitted to the intensive care unit and monitored initially by the casting assistant along with neurosurgery. Placed on Keppra 500 mg IV every 12 hours for seizure prophylaxis. CT cervical spine without any acute abnormalities. It only showed grade 1 anterior listhesis of C4 on C5. The patient status post bilateral bur hole on 11/23. Patient initially coagulopathic with an INR of 3.1 status post K Centra with normalization of the INR. Continue PT/OT. Chronic low back pain Oxycodone as needed for pain. Hold Ultram as this can lower seizure threshold. PT consulted. Resume Neurontin 900 mg twice daily home dose Left knee pain The due to severe also arthritis of the right knee. The patient had an x-ray of bilateral knees which showed chronic degenerative changes likely secondary to osteoarthritis. Consult orthopedic surgery placed by neurosurgery. Likely falls likely bilateral also arthritis is contributing to patient's multiple falls. Acute posthemorrhagic anemia. Patient's hemoglobin dropped down to 11.5 from 13.3 prior to surgical procedure. Suspect acute postop anemia. Hemoglobin remains stable, continue to monitor CBC. Remote history of DVT and PE. The patient was on chronic anticoagulation with warfarin which has been discontinued. The patient is status post K Centra 25 U/kg as well as vitamin K 10 mg IV. Low grade Fever Check Ua and CXR. Hold DC until fever free x 24 hrs. GI: P.o. diet as tolerated. FEN/RENAL: Voiding ID: UA negative. No leukocytosis or fever. Monitor for signs and symptoms of infection. HEME: Chronic anticoagulation with warfarin, reportedly for remote history of PE and DVT Warfarin on hold. Received K Centra 25 units/kg. Received vitamin K 10 mg IV. Last INR on 11/23 is 1.1. Discharge Planning: Dc pending ua and cxr, fever free x 24 hrs.
[2017-12-01 16:46] LABS: Amorphous Sediment,Urine Rare /hpf; Bacteria,Urine Many /hpf; Bilirubin,Urine Negative (Negative); Clarity,Urine Cloudy (Clear); Color,Urine Amber (Yellw/Straw); Glucose,Urine (UA) Negative (Negative); Leukocyte Esterase,Urine Large (Negative); Mucus,Urine Few /lpf (Occasional); Nitrite,Urine Positive (Negative); Specific Gravity,Urine 1.015 (1.002-1.035)
[2017-12-01] MEDS: Lidocaine 5% Patch T-DERMAL SCH (18:04)
[2017-12-01] MEDS: Piperacil/Tazo 4.5 GM Premix 4.5 GM/100 ML BAG IV.SIG SCH (18:04)
--- NOTE | 2017-12-01 19:42 | P.PNIM ---
Subjective Interval history: Late entry - patient seen on 11/29 - Wrote Dc summary by mistake not the patient' s attending. Patient is awake and alert. Denies cp/sob Physical Exam Vital signs: Vital Signs 11/30/17 21:00 11/30/17 23:00 12/01/17 00:45 Temperature 98.7 F 98 F Pulse Rate 70 71 66 Respiratory Rate 19 20 Blood Pressure 145/71 H 140/67 Pulse Oximetry 94 L 95 12/01/17 04:50 12/01/17 05:15 12/01/17 08:00 Temperature 97.8 F 100.0 F H Pulse Rate 64 74 83 Respiratory Rate 20 20 Blood Pressure 140/60 136/77 Pulse Oximetry 95 99 12/01/17 11:34 12/01/17 12:00 12/01/17 15:00 Temperature 100.9 F H 99.4 F Pulse Rate 75 72 75 Respiratory Rate 20 20 Blood Pressure 133/65 125/65 Pulse Oximetry 96 97 12/01/17 16:00 Temperature Pulse Rate 67 Respiratory Rate Blood Pressure Pulse Oximetry Intake & Output 12/01/17 12/01/17 12/02/17 06:59 18:59 06:59 Intake Total 3225 / 3225 Output Total 400 / 400 Balance 2825 / 2825 Intake: IV 1999 Potassium Chlor 20 mEq/NACL 0. 1999 45% Inj 1,000 ML @ 100 mls/hr IV.CONT .Q10H SHARON Rx#:[id number] Oral 1225 / 1225 Output: Urine Amount (Catheter) 400 / 400 Female External 400 / 400 Other: # Voids 1 4 # Incontinent Voids 2 Date of Last Bowel Movement 12/01/17 12/01/17 # Bowel Movements 1 1 # Incontinent Bowel Movements 1 Narrative: GENERAL: Awake & alert sitting up in bed . Affect normal. Readily interacts. No apparent distress. HEENT: Normocephalics. Well approximated bilateral tiarra hole surgical incisions w/dai intact, TC drain insertion site w/steri-strips intact, no drainage, erythema or streaking noted to incisions or insertion site. PERRLA 2 mm brisk, EOMI. MMM & pink, tongue midline to protrusion. MUSCULOSKELETAL: Moves BUE w/o difficulty. Decreased ROM L>R to BLE, knees TTP. NEUROLOGICAL: AAOx3. Speech clear & appropriate. Follows simple commands w/o difficulty. CN II through XII appear grossly intact. Motor strength normal to BUE. Motor strength RLE 4 to 4+/5. LLE motor strength is iliopsoas 1 to 1+/5, quadriceps 1+/5, hamstring 1+ to 2/5, and distally 3/5, patient does have pain w /testing. - Urinary Catheter Management Female External Cath placed during this visit: no Results - Labs CBC & Chem 7: 12/01/17 12:39 11/28/17 07:07 Laboratory Results - last 24 hr 12/01/17 12/01/17 12:39 16:05 WBC 15.8 H RBC 4.10 Hgb 12.9 Hct 37.7 MCV 91.9 MCH 31.4 MCHC 34.2 RDW 14.3 Plt Count 235 D MPV 8.1 Urine Color An Urine Clarity Cloudy H Urine pH 7.0 Ur Specific [place] 1.015 Urine Protein 30 H Urine Glucose (UA) Negative Urine Ketones Negative Urine Occult Blood Moderate H Urine Nitrate Positive H Urine Bilirubin Negative Urine Urobilinogen 2.0 H Ur Leukocyte Esterase Large H Urine RBC 8 H Urine WBC 7 H Amorphous Sediment Rare H Urine Bacteria Many H Urine Mucus Few H Micro UA Comment Culture indicated Urine Culture Comments Culture indicated Assessment and Plan - Assessment (1) Subacute subdural hematoma Code(s): S06.5X9A - Traumatic subdural hemorrhage with loss of consciousness of unspecified duration, initial encounter Status: Acute (2) Osteoarthritis of knees, bilateral Code(s): M17.0 - Bilateral primary osteoarthritis of knee Status: Chronic (3) Postoperative anemia due to acute blood loss Code(s): D62 - Acute posthemorrhagic anemia Status: Resolved (4) Low grade fever Code(s): R50.9 - Fever, unspecified Status: Acute - Plan 82 yo female who is transferred from [facility] emergency department to [facility] due to bilateral subdural hematomas. she states that she has had several falls over the last 2-3 months. Says she fell 2 months ago and had scalp laceration repaired. She says she has had increasing difficulty with ambulating and "slips" often. Says she lives alone. She denies headache, CP, SOB, dizziness, syncope, seizure, n/v. 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 INR upon presentation was 3.1. She has received K Centra with normalization of INR. She is admitted to Dr. Dueñas who plans for surgical evacuation of bilateral hematoma. Bilateral subacute subdural hematomas The patient was admitted to the intensive care unit and monitored initially by the retail interior designer along with neurosurgery. Placed on Keppra 500 mg IV every 12 hours for seizure prophylaxis. CT cervical spine without any acute abnormalities. It only showed grade 1 anterior listhesis of C4 on C5. The patient status post bilateral bur hole on 11/23. Patient initially coagulopathic with an INR of 3.1 status post K Centra with normalization of the INR. Continue PT/OT. Chronic low back pain Oxycodone as needed for pain. Hold Ultram as this can lower seizure threshold. PT consulted. Resume Neurontin 900 mg twice daily home dose Left knee pain The due to severe also arthritis of the right knee. The patient had an x-ray of bilateral knees which showed chronic degenerative changes likely secondary to osteoarthritis. Consult orthopedic surgery placed by neurosurgery. Likely falls likely bilateral also arthritis is contributing to patient's multiple falls. Acute posthemorrhagic anemia. Patient's hemoglobin dropped down to 11.5 from 13.3 prior to surgical procedure. Suspect acute postop anemia. Hemoglobin remains stable, continue to monitor CBC. Remote history of DVT and PE. The patient was on chronic anticoagulation with warfarin which has been discontinued. The patient is status post K Centra 25 U/kg as well as vitamin K 10 mg IV GI: P.o. diet as tolerated. FEN/RENAL: Voiding ID: UA negative. No leukocytosis or fever. Monitor for signs and symptoms of infection. HEME: Chronic anticoagulation with warfarin, reportedly for remote history of PE and DVT Warfarin on hold. Received K Centra 25 units/kg. Received vitamin K 10 mg IV. Last INR on 11/23 is 1.1. Discharge Planning: Dc pending ua and cxr, fever free x 24 hrs.
--- NOTE | 2017-12-01 22:26 | XR ---
EXAM DATE: 12/01/2017 2:14 PM EDT AGE/SEX: 82 years / Female INDICATIONS: Fever,cough. CLINICAL DATA: This is the patient's subsequent encounter. Patient reports that signs and symptoms h ave been present for 3 days and indicates a pain score of 0/10. MEDICAL/SURGICAL HISTORY: Deep venous thrombosis. Gastroesophageal reflux disease. Neuropathy. None. COMPARISON: [facility] [place], CHEST 1V SINGLE AP, 11/28/2017. . FINDINGS: PA and lateral views of the chest demonstrate the lungs to be symmetrically aerated without evidence of mass, infiltrate or effusion. The cardiomediastinal contours are unremarkable. Osseous structures are intact. CONCLUSION: No acute intrathoracic disease. Stable examination. Electronically signed by: Guy Villafuerte MD 12/01/2017 2:19 PM EDT
--- NOTE | 2017-12-01 22:28 | CT ---
EXAM DATE: 12/01/2017 4:41 PM EDT AGE/SEX: 82 years / Female INDICATIONS: Altered mental status. CLINICAL DATA: This is the patient's subsequent encounter. Patient reports that signs and symptoms h ave been present for 3 days and indicates a pain score of 0/10. MEDICAL/SURGICAL HISTORY: . Subarachnoid hemorrhage. None. RADIATION DOSE: 44.65 CTDI (mGy) COMPARISON: [facility] [place], CT HEAD W/O CONTRAST, 11/28/2017. . TECHNIQUE: CT of the head without contrast. Using automated exposure control and adjustment of the mA and/or kV according to patient size, radiation dose was kept as low as reasonably achievable to ob tain optimal diagnostic quality images. DICOM format image data is available electronically for revi ew and comparison. FINDINGS: Today's exam is compared to the prior study. There continues to be slow resolving postsurgical change s. There continues to be small bilateral subdural collections. However, the left-sided subdural colle ction has almost completely resolved. There is only approximately 4 mm of separation on today's exam. This is improved compared to the prior study. There continues to be a stable right-sided subdural co llection with approximate 8 mm of separation. There is less intracranial air on today's study. No new areas of hemorrhage are demonstrated. No mass effect or significant midline shift is demonstrated. T he posterior fossa is stable. The ventricles remain normal in size. CONCLUSION: 1. Slowly improving postsurgical changes are again noted. 2. The previously noted left-sided subdural collection is almost completely resolved. 3. The right-sided subdural collection is about the same with approximately 8 mm of separation. 4. There is less intracranial air on today's examination compared to the prior study. 5. No new areas of intracranial hemorrhage. Electronically signed by: Guy Villafuerte MD 12/01/2017 4:45 PM EDT
[2017-12-02] MEDS: KCL 20 mEq/NACL 0.45% Inj 1,000 ML IV.CONT SCH ×2 (01:02→09:19)
[2017-12-02] MEDS: Piperacil/Tazo 4.5 GM Premix 4.5 GM/100 ML BAG IV.SIG SCH ×3 (01:06→18:47)
[2017-12-02] MEDS: Famotidine 20 MG Tablet PO SCH ×2 (09:16→22:50)
[2017-12-02] MEDS: levETIRAcetam 500 MG Tablet PO SCH ×2 (09:16→22:49)
[2017-12-02] MEDS: Senna/Docusate Sodium 8.6/50 MG Tablet PO SCH ×2 (09:17→22:50)
[2017-12-02] MEDS: Gabapentin 300 MG Capsule PO SCH ×2 (09:17→22:48)
[2017-12-02 10:36] LABS: Baso # (Auto) 0.1 th/mm3 (0.0-0.2); Baso % (Auto) 0.6 % (0.0-2.0); Eos % (Auto) 0.2 % (0.0-4.0); Hemoglobin 11.5 gm/dL (11.6-15.3); Lymph # (Auto) 1.2 th/mm3 (1.0-4.8); Lymph % (Auto) 6.6 % (9.0-44.0); Mean Corpuscular HGB Conc 32.9 % (32.0-36.0); Mean Platelet Volume 8.1 fL (7.0-11.0); Mono # (Auto) 1.8 th/mm3 (0.0-0.9); Mono % (Auto) 9.8 % (0.0-8.0); Neut % (Auto) 82.8 % (16.0-70.0); Platelet Count 265 th/mm3 (150-450); Red Blood Count 3.85 mil/mm3 (4.00-5.30); Red Cell Distribution Width 14.5 % (11.6-17.2); White Blood Count 18.1 th/mm3 (4.0-11.0)
[2017-12-02] MEDS ORDERED: Vancomycin Inj 1 GM/200 ML PIGGYBACK IV.SIG SCH (11:00)
[2017-12-02 11:02] LABS: Alanine Aminotransferase 34 U/L (10-53); Anion Gap 8 meq/L (5-15); Aspartate Aminotransferase 13 U/L (15-37); Blood Urea Nitrogen 12 mg/dL (7-18); Calcium 8.5 mg/dL (8.5-10.1); Carbon Dioxide 29.8 meq/L (21.0-32.0); Chloride 100 meq/L (98-107); Glomerular Filtration Rate Greater Than 89 mL/min (>89); Glucose,Random 101 mg/dL (74-106); Sodium 138 meq/L (136-145)
[2017-12-02 11:04] LABS: Alkaline Phosphatase 122 U/L (45-117)
--- NOTE | 2017-12-02 12:31 | P.PNNS ---
Subjective Interval history: Status post evacuation of bilateral subdural hematoma, bur hole, 11/23/2017 11/27/2017: No new complaints. No headache nausea vomiting. Tolerating diet 11/28/2017: Patient has no complaint of headache nausea vomiting. She is tolerating diet well. She complains of some soreness along her gluteal-sacral region. Persistent primarily left knee pain which is chronic. She states that she has had chronic difficulty ambulating due to her knees, but now cannot really stand or walk at all. 11/29: This morning the patient is awake and alert sitting up in bed. She is on her cellphone talking with a friend. She denies any headache, dizziness, double or blurry vision, nausea or vomiting. She does say it is sore at the surgical incisions. She continues to have pain to the knees and difficulty with lower extremity movement. 11/30: No new complaints. No headache No dizziness Still no bowel movement 12/01: Patient asleep when seen. Awakens to voice and interacts but quickly drifts back off to sleep. Denies any headache or dizziness. She does say she has a cough and has had nausea. She denied any shortness of breath, chest pain, palpitations, irregular heartbeat, abdominal pain, vomiting or dysuria. She follows commands, although limited movement of lower extremities due to drowsiness. No apparent change in muscle strength. 12/02: This afternoon the patient is drowsy but does awaken to voice. She is more alert than yesterday. She has no complaints today. She followed command with all extremities. There is no change in her muscle strength with testing. <Jun Toledo E - Last Filed: 12/02/17 12:14> Physical Exam Vital signs: Vital Signs 12/01/17 15:00 12/01/17 16:00 12/01/17 20:48 Temperature 99.4 F Pulse Rate 75 67 Respiratory Rate 20 Blood Pressure 125/65 Pulse Oximetry 97 98 12/01/17 21:30 12/02/17 01:11 12/02/17 06:30 Temperature 98.6 F 97.9 F 98 F Pulse Rate 66 60 66 Respiratory Rate 19 18 17 Blood Pressure 136/69 146/79 H Pulse Oximetry 96 98 98 12/02/17 08:26 Temperature 100.0 F H Pulse Rate 69 Respiratory Rate 18 Blood Pressure 128/79 Pulse Oximetry 98 Intake & Output 12/01/17 12/02/17 12/02/17 18:59 06:59 18:59 Intake Total 100 / 100 2200 / 2200 1000 / 1000 Output Total 100 / 100 Balance 100 / 100 2100 / 2100 1000 / 1000 Intake: IV 100 / 100 1100 / 1100 1000 / 1000 Potassium Chlor 20 mEq/NACL 0. 1000 / 1000 1000 / 1000 45% Inj 1,000 ML @ 100 mls/hr IV.CONT .Q10H SHARON Rx#:[id number] Zosyn 4.5 GM Premix 4.5 gm In 100 / 100 100 / 100 100 ml @ 200 mls/hr IV.SIG Q8H SHARON Rx#:[id number] Oral 1100 / 1100 Output: Urine Amount (Catheter) 100 / 100 Female External 100 / 100 Other: # Voids 4 # Incontinent Voids 4 Date of Last Bowel Movement 12/01/17 # Bowel Movements 1 0 # Incontinent Bowel Movements 1 3 Narrative: GENERAL: Drowsy, awakens to voice, more alert. Affect slightly flat. Readily interacts. No apparent distress. HEENT: Normocephalic. Well approximated bilateral tiarra hole surgical incisions w /dai intact, TC drain insertion site w/steri-strips intact, no drainage, erythema or streaking noted to incisions or insertion site. PERRLA 2 mm brisk, EOMI. MMM & pink, tongue midline to protrusion. MUSCULOSKELETAL: Moves BUE w/o difficulty. Decreased ROM L>R to BLE, knees TTP. NEUROLOGICAL: Drowsy, opens eyes to voice, more alert today. PERRLA 2 mm brisk, EOMI. Tongue midline to protrusion. Oriented to person, place & time. Speech clear & appropriate. Follows simple commands w/o difficulty. Motor strength normal to BUE. Motor strength BLE appears unchanged, w/pain upon testing. - Urinary Catheter Management Female External Cath placed during this visit: no <Jun Toledo - Last Filed: 12/02/17 12:14> - Urinary Catheter Management Female External Cath placed during this visit: no <Julian Dueñas - Last Filed: 01/30/18 21:26> Assessment and Plan - Assessment (1) Subdural hematoma, acute Code(s): S06.5X9A - Traumatic subdural hemorrhage with loss of consciousness of unspecified duration, initial encounter Status: Acute (2) UTI (urinary tract infection) Code(s): N39.0 - Urinary tract infection, site not specified Status: Acute Qualifiers: Urinary tract infection type: acute cystitis Hematuria presence: with hematuria Qualified Code(s): N30.01 - Acute cystitis with hematuria - Plan Impression: Patient is drowsy and awakens to voice. Once awake she is more alert & responsive. Oriented to person, place & time. No change in muscle strength. Past 24 hrs: 100.0 T max. Reviewed labs for today. Increase in leukocytosis. Drop in haemoglobin level. Sodium 138. eGFR 89. Urine culture () pending results. CT brain w/improving post-op changes, left-sided SDH almost resolved , right-sided essentially stable, less intracranial air, no new haemorrhage noted. Plan: Discussed plan of care w/patient who verbalised her understanding. Discussed plan of care w/Nursing. Continue physical therapy. Will keep patient in [place] at present due to temp. She needs a follow-up CT scan of the head in a couple of weeks. Continue abx. Patient is able to be discharged to [facility] for further inpatient therapy. <Jun Toledo - Last Filed: 12/02/17 12:14> - Assessment (1) Subdural hematoma, acute Code(s): S06.5X9A - Traumatic subdural hemorrhage with loss of consciousness of unspecified duration, initial encounter Status: Acute - Attending Attestation The exam, history, and the medical decision-making described in the above note were completed with the assistance of the mid-level provider. I reviewed and agree with the findings presented. I attest that I had a [id number] encounter with the patient on the same day, and personally performed and documented my assessment and findings in the medical record. <Julian Dueñas - Last Filed: 01/30/18 21:26>
[2017-12-02] MEDS: Vancomycin Inj 1,000 MG in Sodium Chlor 0.9% Inj 250 ML IV.SIG SCH (13:58)
--- NOTE | 2017-12-02 15:32 | US ---
EXAM DATE: 12/02/2017 3:20 PM EDT AGE/SEX: 82 years / Female INDICATIONS: Bilateral leg swelling. CLINICAL DATA: This is the patient's initial encounter. Patient reports that signs and symptoms have been present for 4 - 6 days and indicates a pain score of 3/10. MEDICAL/SURGICAL HISTORY: Gastroesophageal reflux disease. Neck pain. Deep vein thrombosis. Maricarmen n pain. Neuropathy. None. COMPARISON: No prior exams available for comparison. TECHNIQUE: Venous ultrasound of both lower extremities was performed from the inguinal ligament to t he proximal calf. Real-time, color Doppler and spectral tracing, compression and augmentation techni ques were used. FINDINGS: Right Leg: Normal compression of the deep venous system from the inguinal region to the proximal weston f. No echogenic clot is seen. Normal response of the venous system to augmentation and respiration. Left Leg: Occlusion of the left profunda with nonocclusive thrombus in the peripheral common femoral vein. Remaining deep veins demonstrate normal compression and augmentation. Other: None. CONCLUSION: 1. Left profunda DVT with nonocclusive thrombus in the peripheral common femoral vein. 2. No sonographic evidence for right lower extremity DVT. Electronically signed by: Troy Avila MD 12/02/2017 3:31 PM EDT
--- NOTE | 2017-12-02 15:46 | P.DS ---
<Jun Toledo E - Last Filed: 12/02/17 15:34> Date of admission: 11/22/17 15:46 Primary care physician: Dianna Jimenez MD Brief History from admission: Patient presented for a history of falls and worsening knee pain prior to admission. Work up demonstrated subdural haematomas bilaterally and the patient was taken for bilateral tiarra hole evacuation of the haematomas. She progressed well but her ambulation was limited by her knee pain. Orthopaedic Surgery was consulted and evaluated the patient. She developed a UTI and was started on antibiotics for it. DS: Diagnosis - Discharge Diagnosis (1) Subdural hematoma, acute Status: Acute (2) UTI (urinary tract infection) Status: Acute DS: Summary Hospital Course: 11/22: The patient is an 82-year-old female who reportedly has experienced several recent falls. She presented to the emergency room today with complaint of approximately 3 days of neck pain and bilateral knee pain with difficulty ambulating. She apparently was seen at an outside hospital yesterday for similar complaints. The patient is apparently normally active and independent. She is a somewhat poor historian. She states that she has been using a walker for 3 days. She indicates problems with chronic back and knee pain. She does not complain of any significant hip pain. No complaint of significant headache, dizziness. Positive generalized fatigue. Patient has limited range of motion of the right greater than left lower extremity on exam. She is very vague regarding how long this is been a problem for her. She does not seem to indicate chronic problems with ambulation. 11/23: The patient went to the operating room for bilateral tiarra hole evacuation of the subacute subdural haematomas. Post-operatively she returned to the [facility] unit for further care and monitoring. 11/24: This morning the patient is seen sitting up in the chair after having eaten breakfast. She is awake and fairly alert. She says she feels much better but does have pain to the head which is better after medication. She isn't sure if it is a headache or pain at the surgical site. She had no other complaints. She readily interacts and is oriented. Her motor strength is strong to the upper extremities and slightly weaker to the lower which seems to be pain related. 11/25: When seen the patient is awake in bedding, sitting up eating breakfast. She did have a slight headache earlier which was relieved with pain medication. She denies any headache at present. She denies any dizziness, double or blurry vision, nausea or vomiting. Her neuro exam is essentially unchanged except for some decreased motor strength in the left lower extremity. 11/26: Today the patient appears asleep but opens her eyes as this practitioner enters the room. She does not report any headache, dizziness, nausea, vomiting, blurry vision or double vision. She does say it is sore to the top of her head at the surgical incisions. With testing the upper extremities are strong but the lower are weak. She has pain with testing of the lower extremities which the patient reports as being secondary to her chronic neuropathy. 11/27/2017: No new complaints. No headache nausea vomiting. Tolerating diet 11/28/2017: Patient has no complaint of headache nausea vomiting. She is tolerating diet well. She complains of some soreness along her gluteal-sacral region. Persistent primarily left knee pain which is chronic. She states that she has had chronic difficulty ambulating due to her knees, but now cannot really stand or walk at all. 11/29: This morning the patient is awake and alert sitting up in bed. She is on her cellphone talking with a friend. She denies any headache, dizziness, double or blurry vision, nausea or vomiting. She does say it is sore at the surgical incisions. She continues to have pain to the knees and difficulty with lower extremity movement. 11/30: No new complaints. No headache No dizziness Still no bowel movement 12/01: Patient asleep when seen. Awakens to voice and interacts but quickly drifts back off to sleep. Denies any headache or dizziness. She does say she has a cough and has had nausea. She denied any shortness of breath, chest pain, palpitations, irregular heartbeat, abdominal pain, vomiting or dysuria. She follows commands, although limited movement of lower extremities due to drowsiness. No apparent change in muscle strength. 12/02: This afternoon the patient is drowsy but does awaken to voice. She is more alert than yesterday. She has no complaints today. She followed command with all extremities. There is no change in her muscle strength with testing. She was started on antibiotic yesterday for a urinary tract infection. Since the patient is being treated for the UTI and is doing better she is going to be discharged to [facility] for further therapy. - Time Spent with Patient Total time spent providing and/or coordinating discharge services: Exam Vital signs: Vital Signs 12/01/17 16:00 12/01/17 20:48 12/01/17 21:30 Temperature 98.6 F Pulse Rate 67 66 Respiratory Rate 19 Blood Pressure 136/69 Pulse Oximetry 98 96 12/02/17 01:11 12/02/17 06:30 12/02/17 08:26 Temperature 97.9 F 98 F 100.0 F H Pulse Rate 60 66 69 Respiratory Rate 18 17 18 Blood Pressure 146/79 H 128/79 Pulse Oximetry 98 98 98 12/02/17 12:00 Temperature 99.3 F Pulse Rate 69 Respiratory Rate 18 Blood Pressure 125/60 Pulse Oximetry 93 L Intake & Output 12/01/17 12/02/17 12/02/17 18:59 06:59 18:59 Intake Total 100 / 100 2200 / 2200 1000 / 1000 Output Total 100 / 100 Balance 100 / 100 2100 / 2100 1000 / 1000 Intake: IV 100 / 100 1100 / 1100 1000 / 1000 Potassium Chlor 20 mEq/NACL 0. 1000 / 1000 1000 / 1000 45% Inj 1,000 ML @ 100 mls/hr IV.CONT .Q10H SHARON Rx#:[id number] Zosyn 4.5 GM Premix 4.5 gm In 100 / 100 100 / 100 100 ml @ 200 mls/hr IV.SIG Q8H SHARON Rx#:[id number] Oral 1100 / 1100 Output: Urine Amount (Catheter) 100 / 100 Female External 100 / 100 Other: # Voids 4 # Incontinent Voids 4 Date of Last Bowel Movement 12/01/17 # Bowel Movements 1 0 # Incontinent Bowel Movements 1 3 Results Procedures completed during hospitalization: : Bilateral tiarra hole for evacuation subdural hematoma Labs on day of discharge: Labs from last 24 hours 12/02/17 12/02/17 12/01/17 09:18 09:18 16:05 WBC 18.1 H RBC 3.85 L Hgb 11.5 L Hct 35.0 MCV 91.0 MCH 30.0 MCHC 32.9 RDW 14.5 Plt Count 265 MPV 8.1 Neut % (Auto) 82.8 H Lymph % (Auto) 6.6 L Scott % (Auto) 9.8 H Eos % (Auto) 0.2 Baso % (Auto) 0.6 Neut # (Auto) 15.0 H Lymph # (Auto) 1.2 Scott # (Auto) 1.8 H Eos # (Auto) 0.0 Baso # (Auto) 0.1 WBC Differential . Differential Comment Auto diff final Sodium 138 Potassium 4.0 Chloride 100 Carbon Dioxide 29.8 Anion Gap 8 BUN 12 Creatinine 0.60 Estimated GFR Greater than 89 Random Glucose 101 Calcium 8.5 Total Bilirubin 0.6 AST 13 L ALT 34 Alkaline Phosphatase 122 H Total Protein 6.0 L Albumin 2.0 L Urine Color An Urine Clarity Cloudy H Urine pH 7.0 Ur Specific [place] 1.015 Urine Protein 30 H Urine Glucose (UA) Negative Urine Ketones Negative Urine Occult Blood Moderate H Urine Nitrate Positive H Urine Bilirubin Negative Urine Urobilinogen 2.0 H Ur Leukocyte Esterase Large H Urine RBC 8 H Urine WBC 7 H Amorphous Sediment Rare H Urine Bacteria Many H Urine Mucus Few H Micro UA Comment Culture indicated Urine Culture Comments Culture indicated Preliminary micro results at discharge 12/01/17 16:05 Urine Culture - Preliminary Clean Catch Urine - Impressions ITS Impressions Chest X-Ray 12/01/17 00:00 CONCLUSION: No acute intrathoracic disease. Stable examination. Head CT 12/01/17 00:00 CONCLUSION: 1. Slowly improving postsurgical changes are again noted. 2. The previously noted left-sided subdural collection is almost completely resolved. 3. The right-sided subdural collection is about the same with approximately 8 mm of separation. 4. There is less intracranial air on today's examination compared to the prior study. 5. No new areas of intracranial hemorrhage. Venous Doppler Study 12/02/17 00:00 CONCLUSION: 1. Left profunda DVT with nonocclusive thrombus in the peripheral common femoral vein. 2. No sonographic evidence for right lower extremity DVT. <Julian Dueñas - Last Filed: 01/30/18 21:27> Date of admission: 11/22/17 15:46 Primary care physician: Dianna Jimenez MD DS: Diagnosis - Discharge Diagnosis (1) Subdural hematoma, acute Status: Acute DS: Summary - Time Spent with Patient Total time spent providing and/or coordinating discharge services: Less than 30 minutes Results - Impressions ITS Impressions Chest X-Ray 12/01/17 00:00 CONCLUSION: No acute intrathoracic disease. Stable examination. Head CT 12/01/17 00:00 CONCLUSION: 1. Slowly improving postsurgical changes are again noted. 2. The previously noted left-sided subdural collection is almost completely resolved. 3. The right-sided subdural collection is about the same with approximately 8 mm of separation. 4. There is less intracranial air on today's examination compared to the prior study. 5. No new areas of intracranial hemorrhage. Venous Doppler Study 12/02/17 00:00 CONCLUSION: 1. Left profunda DVT with nonocclusive thrombus in the peripheral common femoral vein. 2. No sonographic evidence for right lower extremity DVT. Discharge Plan - Discharge Order Discharge Orders: Discharge Order (Routine); Ordered 12/02/17 Ordered By: Jun Toledo - Discharge Details Anticipated Discharge Date: 11/29/17 - Physicians Team Primary Care Provider: Dianna Jimenez Attending Provider: Julian Dueñas Other Providers: Rodrick More MD ; Sheila Mares MD ; Shaka Stewart MD ; Tee Carmen MD ; Justin Rader MD ; Aida Beasley MD ; Da Rios MD - Rxs /Orders / Referrals /Forms Prescriptions: Discontinued diclofenac sodium 75 mg Tablet,Delayed Release (Dr/Ec) 75 mg PO DAILY tramadol 50 mg Tablet 50 mg PO BID PRN (Reason: Pain) warfarin 5 mg Tablet 5 mg PO DAILY No Action acetaminophen 325 mg Tablet 650 mg PO Q4H PRN (Reason: Fever) RF: 0 hydrocodone-acetaminophen 5-325 mg Tablet 1 tab PO Q6H PRN (Reason: PAIN SCALE 4-10) Qty: 30 RF: 0 levetiracetam [Keppra] 500 mg Tablet 500 mg PO BID Qty: 60 RF: 0 Referrals: Dianna Jimenez MD [Primary Care Provider] - See Instructions ( Please call the physician's office to book the appointment to be seen within [1 week]. The patient will need orthopedic surgery evaluation if not seen during rehab stay.) Julian Dueñas MD [NEUROSURGERY] - See Instructions ( Please call the physician's office to book the appointment to be seen within [1 week].) - Discharge Instructions Patient Printed Instructions: Levetiracetam (By mouth), Osteoarthritis (DC), Hematoma (ED) Additional Instructions: Patient will need an orthopedic surgery consultation or referral if not seen prior to DC. - Post Discharge Care Plan Care Plan Goals: Keep the surgical incisions dry until they completely heal. After the surgical incisions heal you may shower and let the water run over them. Gently wash with a mild soap or shampoo, rinse, then pat dry. Avoid any products containing aspirin or NSAIDs for the next three months. Call the office at [phone] to schedule a follow up appointment with Dr Dueñas in 2 weeks. When you call for your appointment you will need to have the office order a CT scan of the brain to be completed before your office visit.
--- NOTE | 2017-12-02 16:36 | P.PNIM ---
Subjective Interval history: Deferred entry - patient seen earlier at 10:50 am The patient is still having low grade fever. Patient states cough is much better wbc still trending up Physical Exam Vital signs: Vital Signs 12/01/17 20:48 12/01/17 21:30 12/02/17 01:11 Temperature 98.6 F 97.9 F Pulse Rate 66 60 Respiratory Rate 19 18 Blood Pressure 136/69 146/79 H Pulse Oximetry 98 96 98 12/02/17 06:30 12/02/17 08:26 12/02/17 12:00 Temperature 98 F 100.0 F H 99.3 F Pulse Rate 66 69 69 Respiratory Rate 17 18 18 Blood Pressure 128/79 125/60 Pulse Oximetry 98 98 93 L 12/02/17 16:00 Temperature 98.2 F Pulse Rate 86 Respiratory Rate 18 Blood Pressure 113/63 Pulse Oximetry 97 Intake & Output 12/01/17 12/02/17 12/02/17 18:59 06:59 18:59 Intake Total 100 / 100 2200 / 2200 1000 / 1000 Output Total 100 / 100 Balance 100 / 100 2100 / 2100 1000 / 1000 Intake: IV 100 / 100 1100 / 1100 1000 / 1000 Potassium Chlor 20 mEq/NACL 0. 1000 / 1000 1000 / 1000 45% Inj 1,000 ML @ 100 mls/hr IV.CONT .Q10H SHARON Rx#:[id number] Zosyn 4.5 GM Premix 4.5 gm In 100 / 100 100 / 100 100 ml @ 200 mls/hr IV.SIG Q8H SHARON Rx#:[id number] Oral 1100 / 1100 Output: Urine Amount (Catheter) 100 / 100 Female External 100 / 100 Other: # Voids 4 # Incontinent Voids 4 Date of Last Bowel Movement 12/01/17 # Bowel Movements 1 0 # Incontinent Bowel Movements 1 3 Narrative: GENERAL: Drowsy, awakens to voice, more alert. Affect slightly flat. Readily interacts. No apparent distress. HEENT: Normocephalic. Well approximated bilateral tiarra hole surgical incisions w /dai intact, TC drain insertion site w/steri-strips intact, no drainage, erythema or streaking noted to incisions or insertion site. PERRLA 2 mm brisk, EOMI. MMM & pink, tongue midline to protrusion. MUSCULOSKELETAL: Moves BUE w/o difficulty. Decreased ROM L>R to BLE, knees TTP. NEUROLOGICAL: Drowsy, opens eyes to voice, more alert today. PERRLA 2 mm brisk, EOMI. Tongue midline to protrusion. Oriented to person, place & time. Speech clear & appropriate. Follows simple commands w/o difficulty. Motor strength normal to BUE. Motor strength BLE appears unchanged, w/pain upon testing. - Urinary Catheter Management Female External Cath placed during this visit: no Results - Labs CBC & Chem 7: 12/02/17 09:18 12/02/17 09:18 Laboratory Results - last 24 hr 12/01/17 12/02/17 12/02/17 16:05 09:18 09:18 WBC 18.1 H RBC 3.85 L Hgb 11.5 L Hct 35.0 MCV 91.0 MCH 30.0 MCHC 32.9 RDW 14.5 Plt Count 265 MPV 8.1 Neut % (Auto) 82.8 H Lymph % (Auto) 6.6 L [place] % (Auto) 9.8 H Eos % (Auto) 0.2 Baso % (Auto) 0.6 Neut # (Auto) 15.0 H Lymph # (Auto) 1.2 [place] # (Auto) 1.8 H Eos # (Auto) 0.0 Baso # (Auto) 0.1 WBC Differential . Differential Comment Auto diff final Sodium 138 Potassium 4.0 Chloride 100 Carbon Dioxide 29.8 Anion Gap 8 BUN 12 Creatinine 0.60 Estimated GFR Greater than 89 Random Glucose 101 Calcium 8.5 Total Bilirubin 0.6 AST 13 L ALT 34 Alkaline Phosphatase 122 H Total Protein 6.0 L Albumin 2.0 L Urine Color An Urine Clarity Cloudy H Urine pH 7.0 Ur Specific [place] 1.015 Urine Protein 30 H Urine Glucose (UA) Negative Urine Ketones Negative Urine Occult Blood Moderate H Urine Nitrate Positive H Urine Bilirubin Negative Urine Urobilinogen 2.0 H Ur Leukocyte Esterase Large H Urine RBC 8 H Urine WBC 7 H Amorphous Sediment Rare H Urine Bacteria Many H Urine Mucus Few H Micro UA Comment Culture indicated Urine Culture Comments Culture indicated Microbiology 12/01/17 16:05 Clean Catch Urine Urine Culture - Preliminary - Imaging Impressions Chest X-Ray 12/01/17 00:00 CONCLUSION: No acute intrathoracic disease. Stable examination. Head CT 12/01/17 00:00 CONCLUSION: 1. Slowly improving postsurgical changes are again noted. 2. The previously noted left-sided subdural collection is almost completely resolved. 3. The right-sided subdural collection is about the same with approximately 8 mm of separation. 4. There is less intracranial air on today's examination compared to the prior study. 5. No new areas of intracranial hemorrhage. Venous Doppler Study 12/02/17 00:00 CONCLUSION: 1. Left profunda DVT with nonocclusive thrombus in the peripheral common femoral vein. 2. No sonographic evidence for right lower extremity DVT. - Procedures : Bilateral tiarra hole for evacuation subdural hematoma Assessment and Plan - Assessment (1) Subacute subdural hematoma Code(s): S06.5X9A - Traumatic subdural hemorrhage with loss of consciousness of unspecified duration, initial encounter Status: Acute (2) Osteoarthritis of knees, bilateral Code(s): M17.0 - Bilateral primary osteoarthritis of knee Status: Chronic (3) Postoperative anemia due to acute blood loss Code(s): D62 - Acute posthemorrhagic anemia Status: Resolved (4) Low grade fever Code(s): R50.9 - Fever, unspecified Status: Acute - Plan 82 yo female who is transferred from [facility] emergency department to [facility] due to bilateral subdural hematomas. she states that she has had several falls over the last 2-3 months. Says she fell 2 months ago and had scalp laceration repaired. She says she has had increasing difficulty with ambulating and "slips" often. Says she lives alone. She denies headache, CP, SOB, dizziness, syncope, seizure, n/v. 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 INR upon presentation was 3.1. She has received K Centra with normalization of INR. She is admitted to Dr. Dueñas who plans for surgical evacuation of bilateral hematoma. Bilateral subacute subdural hematomas The patient was admitted to the intensive care unit and monitored initially by the information systems manager along with neurosurgery. Placed on Keppra 500 mg IV every [address] hours [address]. [address] cervical spine without any acute abnormalities. It only showed grade 1 anterior listhesis of C4 on C5. The patient status post bilateral bur hole on 11/23. Patient initially coagulopathic with an INR of 3.1 status post K Centra with normalization of the INR. Continue PT/OT. Chronic low back pain Oxycodone as needed for pain. Hold Ultram as this can lower seizure threshold. PT consulted. Resume Neurontin 900 mg twice daily home dose Left knee pain The due to severe also arthritis of the right knee. The patient had an x-ray of bilateral knees which showed chronic degenerative changes likely secondary to osteoarthritis. Consult orthopedic surgery placed by neurosurgery. Likely falls likely bilateral also arthritis is contributing to patient's multiple falls. Acute posthemorrhagic anemia. Patient's hemoglobin dropped down to 11.5 from 13.3 prior to surgical procedure. Suspect acute postop anemia. Hemoglobin remains stable, continue to monitor CBC. Remote history of DVT and PE. The patient was on chronic anticoagulation with warfarin which has been discontinued. The patient is status post K Centra 25 U/kg as well as vitamin K 10 mg IV Sepsis/Low grade Fever Fever and leukocytosis Patient started on Iv Zosyn to cover for suspected aspiration pneumonia since patient had episode of vomiting the night before. Worsening leukocytosis with persistent fever today. UA +, continue IV Zosyn and add IV vancomycin. Consult ID Will check venous doppler of BL lower extremities since patient has been off anticoagulation- if positive consider IVC filter placement. HEME: Chronic anticoagulation with warfarin, reportedly for remote history of PE and DVT Warfarin on hold. Received K Centra 25 units/kg. Received vitamin K 10 mg IV. Last INR on 11/23 is 1.1. Discharge Planning: Dc pending ua and cxr, fever free x 24 hrs.
[2017-12-02] MEDS: Lidocaine 5% Patch T-DERMAL SCH (18:47)
--- NOTE | 2017-12-02 19:46 | P.CONID ---
History of Present Illness Service: Infectious disease Consult date: 12/02/17 Requesting Physician: Tee Carmen Reason for Consult: Evaluation and management of fever Primary Care Provider: Dianna Jimenez MD Chief Complaint: History of falls History of Present Illness: Ms. Williamson is an 82-year-old female who was transferred from [facility] emergency department to the main hospital due to bilateral subdural hematomas. Patient reported that she had several falls over the last 2-3 months. She said more recently a girl in her neighborhood came to hug her and she tripped and fell and hurt herself. She reports she had another fall approximately 2 months ago which was bad and needed a scalp laceration repaired. Patient reports bilateral knee pain and difficulty ambulating and often slips and falls down. Patient reports she lives alone. 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 On initial presentation in the ED her INR was 3.1 and it had to be reversed with use of K Centra. She was admitted to Dr. Dueñas service and underwent surgical evacuation of bilateral acute hematomas on November 23, 2017. Hospital course appears to be fairly okay except more recently in the last 2 days patient started having fevers and now has an elevated white count. Infectious diseases consulted for evaluation and management of new fevers and elevated white count concerning for sepsis. Denies any headache, vision changes Denies any nausea vomiting diarrhea In fact patient reports constipation and reports being on intensive stool/bowel regimen Denies any leg pain or back pain. Past Medical History PE/DVT anticoagulation with warfarin, patient states she has been on warfarin for over 13 years) GERD Neuropathy Past Surgical History Denies other surgeries other than HPI. Review of Systems All other systems reviewed negative except as stated in HPI PMFSH - Tobacco History Smoking Status: Never smoker - Alcohol History How Often Do You Have a Drink Containing Alcohol: Never - Substance Use History Substance History: No History of Abuse - Travel History History of Recent Travel: No Recent Travel in the [place] Within the Last 8 Weeks: No Recent Travel Out of the Country Within the Last 8 Weeks: No Medications and Allergies Active Medications: Active Medications Hydrocodone Bitart/Acetaminophen ([place] 5/325) 1 tab PO Q4H PRN PRN Reason: PAIN SCALE 3-5 Hydrocodone Bitart/Acetaminophen ([place] 10/325) 1 tab PO Q4H PRN PRN Reason: PAIN SCALE 6-10 Last Admin: 12/02/17 13:56 Dose: 1 tab Al Hydroxide/Mg Hydroxide (Milk Of Magnesia Liq) 30 ml PO Q12H PRN PRN Reason: Mild Constipation Last Admin: 11/30/17 17:40 Dose: 30 ml Bisacodyl (Dulcolax Supp) 10 mg RECTAL DAILY PRN PRN Reason: SEVERE CONSITIPATION Famotidine (Pepcid) 20 mg PO BID [facility] Last Admin: 12/02/17 09:16 Dose: 20 mg Gabapentin (Neurontin) 900 mg PO BID [facility] Last Admin: 12/02/17 09:17 Dose: 900 mg Potassium Chloride/Sodium Chloride (Potassium Chlor 20 Meq/Nacl 0.45% Inj) 1, 000 mls @ 100 mls/hr IV.CONT .Q10H [facility] Last Admin: 12/02/17 09:19 Dose: 100 mls/hr Piperacillin/Tazobactam/Dextrose (Zosyn 4.5 Gm Premix) 4.5 gm in 100 mls @ 200 mls/hr IV.SIG Q8H [facility] Last Admin: 12/02/17 18:47 Dose: 200 mls/hr Vancomycin HCl 1,000 mg/ (Sodium Chloride) 250 mls @ 250 mls/hr IV.SIG Q12H [facility] Last Admin: 12/02/17 13:58 Dose: 250 mls/hr Labetalol HCl (Trandate Inj) 10 mg IV.PUSH Q6H PRN PRN Reason: SBP >160, DBP >90 Lactulose (Lactulose Liq) 30 ml PO DAILY PRN PRN Reason: SEVERE CONSITIPATION Last Admin: 11/30/17 09:29 Dose: 30 ml Levetiracetam (Keppra) 500 mg PO BID [facility] Last Admin: 12/02/17 09:16 Dose: 500 mg Lidocaine HCl (Lidoderm 5% Patch.12 Hr) 1 patch T-DERMAL Q24H [facility] Last Admin: 12/02/17 18:47 Dose: 1 patch Morphine Sulfate (Morphine Inj) 2 mg IV.PUSH Q3H PRN PRN Reason: PAIN 3-5, IF UNABLE TO TAKE PO Morphine Sulfate (Morphine Inj) 4 mg IV.PUSH Q3H PRN PRN Reason: BREAKTHROUGH PAIN Naloxone HCl (Narcan Inj) 0.4 mg IV.PUSH PRN PRN PRN Reason: SEE LABEL COMMENTS Patch Removal (Remove Old Patch) 1 each T-DERMAL Q24H [facility] Last Admin: 12/02/17 09:20 Dose: 1 each Senna/Docusate Sodium (Lizzy-Colace) 1 tab PO BID [facility] Last Admin: 12/02/17 09:17 Dose: 1 tab Sennosides (Senokot) 17.2 mg PO Q12H PRN PRN Reason: Moderate Constipation Sodium Chloride (Ns Flush) 10 ml IV.FLUSH UNSCH PRN PRN Reason: FLUSH AFTER USING IV ACCESS Allergies Allergy/AdvReac Type Severity Reaction Status Date / Time No Known Allergies Allergy Unverified 11/22/17 12:32 Home Medications Medication Instructions Recorded Confirmed Type diclofenac sodium 75 mg PO DAILY 11/26/17 11/26/17 History gabapentin 900 mg PO BID 11/26/17 11/26/17 History oxycodone-acetaminophen 1 tab PO Q4H PRN 11/26/17 11/26/17 History ranitidine HCl 150 mg PO BID 11/26/17 11/26/17 History tramadol 50 mg PO BID PRN 11/26/17 11/26/17 History warfarin 5 mg PO DAILY 11/26/17 11/26/17 History Exam Vital signs: Vital Signs 12/01/17 20:48 12/01/17 21:30 12/02/17 01:11 Temperature 98.6 F 97.9 F Pulse Rate 66 60 Respiratory Rate 19 18 Blood Pressure 136/69 146/79 H Pulse Oximetry 98 96 98 12/02/17 06:30 12/02/17 08:26 12/02/17 12:00 Temperature 98 F 100.0 F H 99.3 F Pulse Rate 66 69 69 Respiratory Rate 17 18 18 Blood Pressure 128/79 125/60 Pulse Oximetry 98 98 93 L 12/02/17 16:00 Temperature 98.2 F Pulse Rate 86 Respiratory Rate 18 Blood Pressure 113/63 Pulse Oximetry 97 Intake & Output 12/02/17 12/02/17 12/03/17 06:59 18:59 06:59 Intake Total 2200 / 2200 1100 / 1100 Output Total 100 / 100 Balance 2099 / 2099 1100 / 1100 Intake: IV 1100 / 1100 1100 / 1100 Potassium Chlor 20 mEq/NACL 0. 1000 / 1000 1000 / 1000 45% Inj 1,000 ML @ 100 mls/hr IV.CONT .Q10H [facility] Rx#:[id number] Zosyn 4.5 GM Premix 4.5 gm In 100 / 100 100 / 100 100 ml @ 200 mls/hr IV.SIG Q8H [facility] Rx#:[id number] Oral 1100 / 1100 Output: Urine Amount (Catheter) 100 / 100 Female External 100 / 100 Other: # Incontinent Voids 4 # Bowel Movements 0 # Incontinent Bowel Movements 3 - Constitutional no acute distress - Routine HEENT Exam Head: Present: scalp tenderness (Patient has evidence of bore holes and prior surgery during this admission. With no evidence of infection.) Eye: Present: EOMI, PERRL ENT: Present: mucous membranes moist - Routine Neck Exam Present: supple, full ROM, trachea midline. Absent: JVD, tenderness - Routine Chest/Breast/Axilla Exam Chest wall: Absent: tenderness Breast: Absent: tenderness Axillae: Absent: lymphadenopathy - Routine Respiratory Exam Present: decreased breath sounds, CTA bilaterally - Routine Cardiovascular Exam Present: RRR, S1, S2 - Routine Abdominal Exam Present: soft, normoactive bowel sounds. Absent: tenderness - Routine Extremities Exam Absent: cyanosis, clubbing, edema - Routine Skin Exam Present: intact - Routine Neurological Exam Present: alert, oriented X3, normal speech - Routine Psychiatric Exam Present: normal affect, cooperative Results - Labs CBC & Chem 7: 12/02/17 09:18 18 09:18 Labs: Laboratory Results - last 24 hr 12/01/17 12/02/17 12/02/17 16:05 09:18 09:18 WBC 18.1 H RBC 3.85 L Hgb 11.5 L Hct 35.0 MCV 91.0 MCH 30.0 MCHC 32.9 RDW 14.5 Plt Count 265 MPV 8.1 Neut % (Auto) 82.8 H Lymph % (Auto) 6.6 L [place] % (Auto) 9.8 H Eos % (Auto) 0.2 Baso % (Auto) 0.6 Neut # (Auto) 15.0 H Lymph # (Auto) 1.2 [place] # (Auto) 1.8 H Eos # (Auto) 0.0 Baso # (Auto) 0.1 WBC Differential . Differential Comment Auto diff final Sodium 138 Potassium 4.0 Chloride 100 Carbon Dioxide 29.8 Anion Gap 8 BUN 12 Creatinine 0.60 Estimated GFR Greater than 89 Random Glucose 101 Calcium 8.5 Total Bilirubin 0.6 AST 13 L ALT 34 Alkaline Phosphatase 122 H Total Protein 6.0 L Albumin 2.0 L Urine Color An Urine Clarity Cloudy H Urine pH 7.0 Ur Specific [place] 1.015 Urine Protein 30 H Urine Glucose (UA) Negative Urine Ketones Negative Urine Occult Blood Moderate H Urine Nitrate Positive H Urine Bilirubin Negative Urine Urobilinogen 2.0 H Ur Leukocyte Esterase Large H Urine RBC 8 H Urine WBC 7 H Amorphous Sediment Rare H Urine Bacteria Many H Urine Mucus Few H Micro UA Comment Culture indicated Urine Culture Comments Culture indicated - Imaging Impressions Chest X-Ray 12/01/17 00:00 CONCLUSION: No acute intrathoracic disease. Stable examination. Head CT 12/01/17 00:00 CONCLUSION: 1. Slowly improving postsurgical changes are again noted. 2. The previously noted left-sided subdural collection is almost completely resolved. 3. The right-sided subdural collection is about the same with approximately 8 mm of separation. 4. There is less intracranial air on today's examination compared to the prior study. 5. No new areas of intracranial hemorrhage. Venous Doppler Study 12/02/17 00:00 CONCLUSION: 1. Left profunda DVT with nonocclusive thrombus in the peripheral common femoral vein. 2. No sonographic evidence for right lower extremity DVT. Assessment and Plan - Plan Systemic Inflammatory Response system (SIRS). Subdural hematoma status post evacuation on November 23, 2017. PE/DVTs Recs: Continue Zosyn IV Continue Vanco IV Follow cultures Follow clinically
[2017-12-03] MEDS: KCL 20 mEq/NACL 0.45% Inj 1,000 ML IV.CONT SCH (00:24)
[2017-12-03] MEDS: Piperacil/Tazo 4.5 GM Premix 4.5 GM/100 ML BAG IV.SIG SCH ×2 (00:27→08:26)
[2017-12-03] MEDS: Vancomycin Inj 1,000 MG in Sodium Chlor 0.9% Inj 250 ML IV.SIG SCH ×2 (00:28→11:06)
[2017-12-03] MEDS: Senna/Docusate Sodium 8.6/50 MG Tablet PO SCH (08:20)
[2017-12-03] MEDS: levETIRAcetam 500 MG Tablet PO SCH (08:24)
[2017-12-03] MEDS: Famotidine 20 MG Tablet PO SCH (08:24)
[2017-12-03] MEDS: Gabapentin 300 MG Capsule PO SCH (08:24)
--- NOTE | 2017-12-03 11:33 | P.PNIM ---
Subjective Interval history: Still complaining of left lower extremity pain. No headache, nausea or vomiting. Afebrile. No shortness of breath. Physical Exam Vital signs: Vital Signs 12/02/17 12:00 12/02/17 16:00 12/02/17 20:00 Temperature 99.3 F 98.2 F 98.9 F Pulse Rate 68 86 76 Respiratory Rate 18 18 20 Blood Pressure 125/60 113/63 123/61 Pulse Oximetry 93 L 97 100 12/02/17 22:56 12/03/17 00:00 12/03/17 04:00 Temperature 97.7 F 97.8 F Pulse Rate 71 64 Respiratory Rate 18 18 18 Blood Pressure 123/60 125/62 Pulse Oximetry 97 99 12/03/17 08:00 12/03/17 10:40 Temperature 98 F Pulse Rate 59 L 65 Respiratory Rate 18 Blood Pressure 137/61 Pulse Oximetry 98 Intake & Output 12/02/17 12/03/17 12/03/17 18:59 06:59 18:59 Intake Total 2070 / 2070 1930 / 1930 100 / 100 Output Total 200 / 200 1000 / 1000 Balance 1870 / 1870 930 / 930 100 / 100 Intake: IV 1350 / 1350 1450 / 1450 100 / 100 Potassium Chlor 20 mEq/NACL 0. 1000 / 1000 1000 / 1000 45% Inj 1,000 ML @ 100 mls/hr IV.CONT .Q10H [facility] Rx#:[id number] Zosyn 4.5 GM Premix 4.5 gm In 100 / 100 200 / 200 100 / 100 100 ml @ 200 mls/hr IV.SIG Q8H [facility] Rx#:[id number] Vancomycin Inj 1,000 MG In NS 250 / 250 250 / 250 Inj 250 ML @ 250 mls/hr IV.SIG Q12H [facility] Rx#:[id number] Oral 720 / 720 480 / 480 Output: Urine Amount (Catheter) 200 / 200 1000 / 1000 Female External 200 / 200 1000 / 1000 Other: # Voids 5 # Incontinent Voids 5 Date of Last Bowel Movement 12/02/17 12/03/17 12/03/17 # Bowel Movements 0 4 # Incontinent Bowel Movements 3 Narrative: GENERAL: Awake, alert, oriented, speaking on the phone. HEENT: Well approximated bilateral tiarra hole surgical incisions w/dai intact, TC drain insertion site w/steri-strips intact, no drainage, erythema or streaking noted to incisions or insertion site. PERRLA 2 mm brisk, pupils equal reactive to light, tongue midline. MUSCULOSKELETAL: Moves BUE w/o difficulty. Decreased ROM L>R to BLE Regular rate and rhythm Clear breath sounds Abdomen soft nontender Awake, alert, oriented 3, pupils equal reactive to light, tongue is midline, speech is clear, follows commands, normal bilateral upper extremity strength. - Urinary Catheter Management Female External Cath placed during this visit: no Results - Labs CBC & Chem 7: 12/02/17 09:18 12/02/17 09:18 Microbiology 12/02/17 17:20 Blood - Peripheral Aerobic Blood Culture - Preliminary No growth in 1 day 12/02/17 17:20 Blood - Peripheral Anaerobic Blood Culture - Preliminary No growth in 1 day 12/02/17 17:15 Blood - Peripheral Aerobic Blood Culture - Preliminary No growth in 1 day 12/02/17 17:15 Blood - Peripheral Anaerobic Blood Culture - Preliminary No growth in 1 day 12/01/17 16:05 Clean Catch Urine Urine Culture - Preliminary - Imaging Impressions Venous Doppler Study 12/02/17 00:00 CONCLUSION: 1. Left profunda DVT with nonocclusive thrombus in the peripheral common femoral vein. 2. No sonographic evidence for right lower extremity DVT. - Procedures : Bilateral tiarra hole for evacuation subdural hematoma Assessment and Plan - Assessment (1) Subacute subdural hematoma Code(s): S06.5X9A - Traumatic subdural hemorrhage with loss of consciousness of unspecified duration, initial encounter Status: Acute (2) Osteoarthritis of knees, bilateral Code(s): M17.0 - Bilateral primary osteoarthritis of knee Status: Chronic (3) Postoperative anemia due to acute blood loss Code(s): D62 - Acute posthemorrhagic anemia Status: Resolved (4) Low grade fever Code(s): R50.9 - Fever, unspecified Status: Acute - Plan 82 yo female who is transferred from [facility] emergency department to [facility] due to bilateral subdural hematomas. she states that she has had several falls over the last 2-3 months. Says she fell 2 months ago and had scalp laceration repaired. She says she has had increasing difficulty with ambulating and "slips" often. Says she lives alone. She denies headache, CP, SOB, dizziness, syncope, seizure, n/v. 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 INR upon presentation was 3.1. She has received K Centra with normalization of INR. She is admitted to Dr. Dueñas who plans for surgical evacuation of bilateral hematoma. Bilateral subacute subdural hematomas The patient was admitted to the intensive care unit and monitored initially by the combination machine tool operator along with neurosurgery. She will continue Keppra 500 mg twice a day for seizure prophylaxis. CT cervical spine without any acute abnormalities. It only showed grade 1 anterior listhesis of C4 on C5. The patient status post bilateral bur hole on 11/23.Patient initially coagulopathic with an INR of 3.1 status post K Centra with normalization of the INR. Continue PT/OT. Chronic low back pain Oxycodone as needed for pain. Continue Neurontin 900 mg twice a day. Left knee pain The due to severe also arthritis of the right knee. The patient had an x-ray of bilateral knees which showed chronic degenerative changes likely secondary to osteoarthritis. Likely falls likely bilateral also arthritis is contributing to patient's multiple falls. Acute posthemorrhagic anemia. Patient's hemoglobin dropped down to 11.5 from 13.3 prior to surgical procedure. Suspect acute postop anemia. Hemoglobin remains stable, continue to monitor CBC. Remote history of DVT and PE. The patient was on chronic anticoagulation with warfarin which has been discontinued. The patient is status post K Centra 25 U/kg as well as vitamin K 10 mg IV Sepsis/Low grade Fever Fever and leukocytosis Worsening leukocytosis with persistent fever fever resolved, urinalysis positive , blood cultures pending, urine culture negative today. Continue vancomycin and Zosyn. Infectious disease on board, follow-up cultures. Repeat CBC tomorrow. Infectious disease needs to be reconsulted upon transfer to [facility]. Left lower extremity DVT-venous Doppler showed left lower extremity DVT, nonocclusive. Cannot be on anticoagulation. Will need IVC filter placement, consult interventional radiology. Discharge to [facility] when ready. (2) Osteoarthritis of knees, bilateral Qualifiers: Osteoarthritis type: primary Qualified Code(s): M17.0 - Bilateral primary osteoarthritis of knee
== END 2017-12-03 13:06 ==
LOC: N03 15:46 → N05 11-27 21:13
PROVIDERS: ADMIT Neurological Surgery; ATTEND Neurological Surgery

== ENCOUNTER 2018-05-08 05:13 | Inpatient (IN) ==
--- NOTE | 2018-05-03 11:32 | MH ---
cc: Maddy Chisholm MD DATE OF ADMISSION: 05/08/2018 ADMITTING DIAGNOSIS: Osteoarthritic degeneration right knee, now being admitted for a right total knee arthroplasty. HISTORY OF PRESENT ILLNESS: This is pleasant 82-year-old female is being admitted today for severe painful arthritic degeneration with valgus deformity of her right knee. PAST MEDICAL HISTORY: The patient has a history of previous brain bleed for which she has had surgery. She has a history of arthritis. CURRENT MEDICATIONS: Eliquis, which she stopped before surgery. REVIEW OF SYSTEMS: Noncontributory. FAMILY HISTORY: Noncontributory. SOCIAL HISTORY: She does not smoke or drink. ALLERGIES: ALLERGIC TO IODINATED CONTRAST, ORAL AND IV DYE. PHYSICAL EXAMINATION: GENERAL: We find an 82-year-old female, well-developed, well-nourished, oriented x 3, complaining of pain in her right knee. VITAL SIGNS: Blood pressure 100/60, pulse 60 and regular, respirations 16, temperature 97.7, pulse oximetry 97% on room air. HEENT: Eyes PERRLA, EOMI. Ears, nose, and mouth clear. NECK: Supple. LUNGS: Clear. HEART: Regular rate. ABDOMEN: Soft, positive bowel sounds, nontender. EXTREMITIES: Reveal the right knee to be tender with crepitance throughout range of motion. Genu valgus deformity noted. IMPRESSION: Severe painful osteoarthritic degeneration, right knee, with valgus deformity. PLAN: Admission for right total knee arthroplasty today. The patient was given a prescription for postoperative pain control in the office. J. MD MAGI Shelton/reynaldo , 11:20 AM , 11:26 AM
[2018-05-08] MEDS ORDERED: Chlorhexidine Gluconate 2% 1 Pack (2 Cloths) TOPICAL ONE (05:44)
[2018-05-08] MEDS ORDERED: Metoprolol Tartrate 25 MG Tablet PO ONE (05:44)
[2018-05-08] MEDS ORDERED: Vancomycin Inj 1,000 MG in Sodium Chlor 0.9% Inj 250 ML IV.SIG SCH (06:00)
[2018-05-08] MEDS ORDERED: Sodium Chlor 0.9% Inj 500 ML IV.SIG SCH (06:00)
[2018-05-08] MEDS ORDERED: ceFAZolin 2 GM Premix Inj 2 GM/50 ML PIGGYBACK IV.SIG SCH (06:00)
[2018-05-08] MEDS ORDERED: Chlorhexidine 4% Topical 120 APPLIC/120 ML Bottle TOPICAL SCH (06:00)
[2018-05-08] MEDS ORDERED: Bupivacaine Liposomal PF 1.3% Inj 20 ML Vial ONE (06:05)
[2018-05-08] MEDS ORDERED: Lidocaine PF 1% Inj 5 ML Vial ONE (06:06)
[2018-05-08] MEDS ORDERED: ceFAZolin Inj 20 ML ONE (06:17)
[2018-05-08] MEDS ORDERED: Bisacodyl 10 MG Supp RECTAL PRN (07:25)
[2018-05-08] MEDS ORDERED: Morphine Inj 4 MG/ML Vial IV.PUSH PRN (07:25)
[2018-05-08] MEDS ORDERED: Post-op Orders (for Pharmacy) OTHER STA (07:25)
[2018-05-08] MEDS ORDERED: TRANEXAMIC ACID IV.SIG SCH (07:30)
[2018-05-08] MEDS ORDERED: Sodium Chlor 0.9% Inj 80 ML, Bupivacaine Liposo PF 1.3% Inj 20 ML, Bupivacaine PF 0.25%... P-ARTICULR SCH ×3 (07:30)
[2018-05-08] MEDS ORDERED: SODIUM CHLOR 0.9% IV.SIG SCH (07:30)
[2018-05-08] MEDS ORDERED: Labetalol HCl Inj 100 MG/20 ML Vial ONE ×2 (08:35→08:38)
[2018-05-08] MEDS ORDERED: MULTIVITAMIN IRON FOLIC ACID PO SCH (09:00)
[2018-05-08] MEDS ORDERED: *Meperidine Inj 25 MG/ML Vial PERIprocedural Use ONLY ONE (10:10)
[2018-05-08] MEDS ORDERED: *Ondansetron Inj 4 MG/2 ML Vial PERIprocedural Use ONLY ONE (10:10)
[2018-05-08] MEDS ORDERED: fentaNYL Citrate Inj 100 MCG/2 ML Ampul ONE (10:11)
--- NOTE | 2018-05-08 10:23 | MP ---
cc: Maddy Chisholm MD DATE OF OPERATION: 05/08/2018 PREOPERATIVE DIAGNOSIS: Osteoarthritic degeneration, right knee POSTOPERATIVE DIAGNOSIS: Osteoarthritic degeneration, right knee. SURGERY PERFORMED: Right total knee arthroplasty using Consensus components, size 4 femur, 2 tibia, 10 standard insert, 2 patella, and 2 batches of antibiotic-impregnated cement. SURGEON: Maddy Chisholm MD. ELEMENTARY VOCAL MUSIC TEACHER: Elina Geller APRN. ANESTHESIA: General intubation, block. PROCEDURE: After successful induction of anesthesia, the patient is placed on the operating room table in the supine position. The knee is prepped and draped in the usual manner. A longitudinal incision is made extending from 3 inches proximal to the superior pole of the patella, across the patella in longitudinal fashion, and down past the insertion of the tibial tubercle into the proximal tibia. The incision is carried down through subcutaneous tissue along the medial aspect of the patella and retinaculum, down through the capsule to expose the knee joint. The patella and patellar tendon are freed up enough to allow the patella to be inverted and retracted off the lateral side of the knee joint. The knee joint is left exposed. Small osteophytes are removed. All soft tissue is removed to allow proper position of the femoral and tibial cutting jig guide. The first femoral jig is then inserted along the distal end of the femur after first measuring to decide whether this is a small, medium, or large component. The notch is then drilled and the tibial cutting guide inserted into the femoral cutting guide, along with the ankle brace to allow for proper measurement of the tibial cutting surface that needed to be resected. Pins are inserted into the tibial cutting jig and femoral cutting jig to hold them in place. An oscillating saw is then used to resect the surface of the tibia. The surface of the tibia is then completely removed using sharp and blunt dissection. The anterior and posterior cuts of the femur are then made as well using an oscillating saw through the cutting guide. All guides are then removed and the varus/valgus angulation cutting guide applied to the femur for proper measurement of the proper amount of valgus. The anterior cutting guide for the femur is then inserted at the anterior femoral cuts made. Next, the first block trial is inserted into the femur to allow for proper condyle drill holes to be made which are then made followed by removal of the bone between the condyles using an oscillating saw as well as the bone removed at the most posterior surface of the condyle. After this, this guide is removed and the chamfer cuts made using the chamfer cutting guide from both anterior and posterior. Next, the femoral trial is then inserted, the tibial surface reflected anterior to expose the tibial surface and a tibial stem guide is inserted after first measuring for a standard, standard plus, large, or large plus surface to be used. After the stem is impacted the trial tibial surface is applied followed by the trial meniscal components. After full range of motion is found with the appropriate length meniscal components varying the patella is prepared by resecting the posterior aspect of the patella using an oscillating saw, inserting a trial. The trial is then removed and the cruciate cutting guide applied using the bur to cut the cruciate cuts. After cruciate cuts are made all trials are removed. The wound is irrigated copiously with antibiotic solution and Water Pik and the actual components inserted into place using the aforementioned components. After meticulous hemostasis was achieved, 120 mL of the mixture of Exparel, normal saline, 0.25% Marcaine plain was injected around the joint for extra pain control. Deep fascia approximated with running #2 Quill. Subcutaneous tissue approximated using interrupted running 2-0 and 3-0 Monocryl and Quill suture. A Prineo dressing applied. No drain utilized. Knee immobilizer applied. No tourniquet. The patient tolerated the procedure well and left the operating room in stable condition. Elina Geller APRN, was present during the entire procedure to include patient positioning as well as the procedure itself. The medical necessity of the nurse practitioner list of first job ideas was indicated in this case due to the surgical complexity of the case itself. The surgical training specialist was working the back table while my surgical first press operator MANAGING PARTNER was directly assisting me. ESTIMATED BLOOD LOSS: 400 mL. COUNTS: Sponge and suture counts were correct. COMPONENTS: The components used were Consensus components, size 4 femur, 2 tibia, 10 standard insert, 2 patella, and 2 batches of antibiotic-impregnated cement. TOURNIQUET: No tourniquet was utilized in this case. JMD MAGI Wilson/reina , 09:57 AM , 10:03 AM
--- NOTE | 2018-05-08 10:27 | P.BOP ---
- Preoperative Diagnosis (1) Osteoarthritis of knees, bilateral - Postoperative Diagnosis (1) Status post total right knee replacement using cement Date of procedure: 05/08/18 Procedure: Right Total Knee Arthroplasty Implants: see implant record Anesthesia: GETA Surgeon: Diamante Chisholm MD Pony Rougher: Elina Geller Estimated blood loss (mL): 400 Tourniquet time (min): 0 (none) Urine output (mL): 0 (no fontana) Pathology: none sent Condition: stable Disposition: PACU
[2018-05-08] MEDS ORDERED: *Promethazine Inj 25 MG/ML Vial PERIprocedural use ONLY ONE (10:37)
--- NOTE | 2018-05-08 11:04 | XR ---
EXAM DATE: 05/08/2018 10:57 AM EST AGE/SEX: 82 years / Female INDICATIONS: Post op right knee. CLINICAL DATA: This is the patient's initial encounter. Patient reports that signs and symptoms have been present for 1 day and indicates a pain score of Nonresponsive. MEDICAL/SURGICAL HISTORY: None. None. COMPARISON: [facility] [place], KNEE RIGHT LTD (1 OR 2 VW), 11/24/2017. . FINDINGS: AP and lateral views of the knee following arthroplasty reveals a prosthesis in anatomic alignment. F racture is not appreciated. CONCLUSION: Status post total knee arthroplasty. Emmanuel Basurto MD FACR Electronically signed by: Emmanuel Basurto MD 05/08/2018 11:02 AM EST
[2018-05-08] MEDS ORDERED: *morphine SULFATE 10 MG/ML PERIprocedure ONLY ONE (11:15)
[2018-05-08] MEDS: Famotidine 20 MG Tablet PO SCH ×2 (12:29→20:17)
[2018-05-08] MEDS: Gabapentin 300 MG Capsule PO SCH ×2 (12:29→20:16)
[2018-05-08] MEDS: Senna/Docusate Sodium 8.6/50 MG Tablet PO SCH ×2 (12:29→20:17)
[2018-05-08] MEDS: Lisinopril 20 MG Tablet PO SCH (12:30)
[2018-05-08] MEDS: Multivitamin/Minerals Therapeutic Tablet PO SCH ×2 (12:30→20:17)
[2018-05-08] MEDS: Timolol 0.25% Drops 5 ML Bottle EACH EYE SCH (12:30)
[2018-05-08] MEDS: ceFAZolin 1 GM Premix Inj 1 GM/50 ML IV.SIG SCH ×2 (13:45→20:15)
--- NOTE | 2018-05-08 17:45 | P.CON ---
History of Present Illness Service: [facility] Consult date: 05/08/18 Requesting Physician: Diamante Chisholm Reason for Consult: Hx DVT and brain bleed Primary Care Provider: Justin Sarabia Chief Complaint: Knee surgery History of Present Illness: 82-year-old female with past medical history significant for arthritis , hypertension, borderline diabetes, DVTs and brain bleed who presents to [place] for total right knee arthroplasty due to osteoarthritis of right knee. [facility] consulted to assist with ongoing medical management. Patient reports newly diagnosed hypertension about 2 weeks ago and started on medication. She controls her diabetes with diet. States that she has a long history of DVTs and was previously on warfarin for anticoagulation. In October of this year had a fall resulting in subdural hematomas. Patient was eventually transitioned to oral Eliquis, this has been on hold for the past 2 days due to planned procedure. Patient also reports having recent IVC filter for recurrent left lower extremity DVT during that hospitalization. She is seen and examined sitting up in bed in no acute distress. She reports some throat soreness, denies any nausea, vomiting, fevers, chills, cough, shortness of breath or chest pain. Reports pain is 5/10 on right knee at the moment. Review of Systems All other systems reviewed negative except as stated in HPI PMFSH - History History Provided By: Patient - Medical History Medical History: Medical History (Last Reviewed 05/08/18 @ 17:45 by Leia Gutiérrez) DVT (deep venous thrombosis) (Acute) Back pain (Acute) Knee pain, bilateral (Acute) Arthritis (Acute) GERD (gastroesophageal reflux disease) (Acute) Skin cancer Presence of vena cava filter - Surgical History Surgical History: Surgical History (Last Reviewed 05/08/18 @ 17:45 by Leia Gutiérrez) History of tiarra hole surgery (Resolved) - Family History Family History: Family History (Last Reviewed 05/08/18 @ 17:45 by Leia Gutiérrez) Other Family history of cancer - Social History I have reviewed the patient's Social History: Yes - Tobacco History Second Hand Smoke Exposure: No Smoking Status: Never smoker - Alcohol History How Often Do You Have a Drink Containing Alcohol: Never - Substance Use History Substance History: No History of Abuse - Travel History Recent Travel in the [place] Within the Last 8 Weeks: No Recent Travel Out of the Country Within the Last 8 Weeks: No Medications and Allergies Active Medications: Active Medications Hydrocodone Bitart/Acetaminophen ([place] 7.5/325) 1 tab PO Q4H PRN PRN Reason: PAIN LESS THAN 5 ON SCALE Hydrocodone Bitart/Acetaminophen ([place] 7.5/325) 2 tab PO Q6H PRN PRN Reason: PAIN SCALE 5 TO 10 Al Hydroxide/Mg Hydroxide (Milk Of Magnesia Liq) 30 ml PO BID PRN PRN Reason: Mild Constipation Apixaban (Eliquis) 2.5 mg PO BID [facility] Bisacodyl (Dulcolax Supp) 10 mg RECTAL DAILY PRN PRN Reason: SEVERE CONSITIPATION Chlorhexidine Gluconate (Hibiclens 4% Topical) 1 applicatio TOPICAL ONCE [facility] Stop: 05/12/18 05:59 Last Admin: 05/08/18 06:18 Dose: 1 applicatio Famotidine (Pepcid) 20 mg PO BID [facility] Last Admin: 05/08/18 12:29 Dose: Not Given Gabapentin (Neurontin) 900 mg PO BID [facility] Last Admin: 05/08/18 12:29 Dose: Not Given Sodium Chloride (Ns Inj) 500 mls @ 30 mls/hr IV.SIG .Q10H [facility] Last Admin: 05/08/18 06:17 Dose: Not Given Lactated Ringer's (Lr 1000 Ml Inj) 1,000 mls @ 30 mls/hr IV.SIG .Q24H [facility] Stop: 05/09/18 05:44 Last Admin: 05/08/18 06:17 Dose: 30 mls/hr Cefazolin Sodium/Dextrose (Ancef 2 Gm Premix Inj) 2 gm in 50 mls @ 100 mls/hr IV.SIG HOG COOLER [facility] Stop: 05/12/18 05:59 Last Infusion: 05/08/18 08:05 Dose: Infused Vancomycin HCl 1,000 mg/ (Sodium Chloride) 250 mls @ 250 mls/hr IV.SIG HOG COOLER [facility] Stop: 05/11/18 05:47 Last Infusion: 05/08/18 07:40 Dose: Infused Cefazolin Sodium/Dextrose (Ancef 1 Gm Premix Inj) 1 gm in 50 mls @ 100 mls/hr IV.SIG Q6H [facility] Stop: 05/09/18 02:29 Last Infusion: 05/08/18 14:30 Dose: Infused Lactated Ringer's (Lr 1000 Ml Inj) 1,000 mls @ 80 mls/hr IV.CONT .[id number] [facility] Last Infusion: 05/08/18 16:39 Dose: 80 mls/hr Lactulose (Lactulose Liq) 30 ml PO DAILY PRN PRN Reason: SEVERE CONSITIPATION Lisinopril (Prinivil) 20 mg PO DAILY [facility] Last Admin: 05/08/18 12:30 Dose: Not Given Miscellaneous Information ([facility] Information) 0 each OTHER UNSCH PRN PRN Reason: SEE LABEL COMMENTS Stop: 05/09/18 10:03 Morphine Sulfate (Morphine Inj) 2 mg IV.PUSH Q3H PRN PRN Reason: BREAKTHROUGH PAIN Multivitamins/Minerals (Theragran-M) 1 tab PO BID [facility] Stop: 07/07/18 09:59 Last Admin: 05/08/18 12:30 Dose: Not Given Ondansetron HCl (Zofran Odt) 4 mg PO Q6H PRN PRN Reason: NAUSEA OR VOMITING Last Admin: 05/08/18 13:32 Dose: 4 mg Senna/Docusate Sodium (Lizzy-Colace) 1 tab PO BID [facility] Last Admin: 05/08/18 12:29 Dose: Not Given Sennosides (Senokot) 17.2 mg PO BID PRN PRN Reason: Moderate Constipation Sodium Chloride (Ns Flush) 2 ml IV.FLUSH BID [facility] Sodium Chloride (Ns Flush) 2 ml IV.FLUSH PRN PRN PRN Reason: FLUSH AFTER USING IV ACCESS Timolol Maleate (Timolol 0.25% Drops) 1 drops EACH EYE DAILY [facility] Last Admin: 05/08/18 12:30 Dose: Not Given Allergies Allergy/AdvReac Type Severity Reaction Status Date / Time Iodinated Contrast- Oral and Allergy Hives Verified 05/01/18 09:30 IV Dye [Contrast] Home Medications Medication Instructions Recorded Confirmed Type apixaban [Eliquis] 2.5 mg PO BID 05/01/18 05/08/18 History famotidine [Pepcid] 20 mg PO BID 05/01/18 05/08/18 History gabapentin 900 mg PO BID 05/01/18 05/08/18 History qxinpucduacl-vets-hbtrx acid 1 tab PO DAILY 05/01/18 05/08/18 History [Centrum Complete] lisinopril 20 mg PO DAILY 05/08/18 05/08/18 History timolol 1 drp OPHTHALMIC (EYE) DAILY 05/08/18 05/08/18 History Physical Exam Vital signs: Vital Signs 05/08/18 06:05 05/08/18 10:01 05/08/18 10:15 Temperature 97.9 F 98.4 F Pulse Rate 54 L 55 L 49 L Respiratory Rate 18 12 13 Blood Pressure 157/67 H 163/73 H 80/44 L Pulse Oximetry 100 99 99 05/08/18 10:30 05/08/18 10:45 05/08/18 11:00 Temperature Pulse Rate 48 L 50 L 65 Respiratory Rate 11 L 20 21 Blood Pressure 101/51 L 132/61 132/60 Pulse Oximetry 96 100 100 05/08/18 11:15 05/08/18 11:18 05/08/18 12:00 Temperature Pulse Rate 56 L 50 L Respiratory Rate 21 16 Blood Pressure 144/64 H 157/66 H Pulse Oximetry 100 100 100 05/08/18 13:00 05/08/18 14:00 05/08/18 15:00 Temperature Pulse Rate 48 L 67 55 L Respiratory Rate 20 15 16 Blood Pressure 131/60 149/65 H 142/66 H Pulse Oximetry 100 100 100 05/08/18 16:00 05/08/18 16:30 Temperature 97.5 F L Pulse Rate 60 61 Respiratory Rate 16 14 Blood Pressure 130/63 132/61 Pulse Oximetry 100 100 Intake & Output 05/07/18 05/08/18 05/08/18 18:59 06:59 18:59 Intake Total 1622 / 1622 Output Total 1200 / 1200 Balance 422 / 422 Weight 67 kg Intake: IV 622 / 622 LR 1000 mL Inj 1,000 ML @ 80 272 / 272 mls/hr IV.CONT .[id number] [facility] Rx# :[id number] Vancomycin Inj 1,000 MG In NS 250 / 250 Inj 250 ML @ 250 mls/hr IV.SIG HOG COOLER [facility] Rx#:[id number] Ancef 1 GM Premix Inj 1 gm In 50 / 50 50 ml @ 100 mls/hr IV.SIG Q6H [facility] Rx#:[id number] Ancef 2 GM Premix Inj 2 gm In 50 / 50 50 ml @ 100 mls/hr IV.SIG HOG COOLER [facility] Rx#:[id number] Anesthesia Amount 1000 / 1000 Output: Estimated Blood Loss 400 / 400 Urine Amount (Catheter) 800 / 800 Straight 800 / 800 Other: Weight On Admission 67 kg Narrative: GENERAL: Well-developed, well-nourished female sitting up in bed in no acute distress. SKIN: Warm and dry. HEAD: Atraumatic. Normocephalic. EYES: Pupils equal and round. No scleral icterus. No injection or drainage. ENT: No nasal bleeding or discharge. Mucous membranes pink and moist. Mild uvula edema noted, nonobstructing. NECK: Trachea midline. No JVD. CARDIOVASCULAR: Regular rate and rhythm. RESPIRATORY: No accessory muscle use. Clear to auscultation. Breath sounds equal bilaterally. GASTROINTESTINAL: Abdomen soft, non-tender, nondistended. + Bowel sounds MUSCULOSKELETAL: Extremities without clubbing, cyanosis, or edema. No obvious deformities. NEUROLOGICAL: Awake, alert, oriented x3. No obvious cranial nerve deficits. Motor grossly within normal limits. 5/5 bilateral upper and left lower extremity strength, RLE limited due to surgery. Normal speech. PSYCHIATRIC: Appropriate mood and affect; insight and judgment normal. - Urinary Catheter Management Straight Cath placed during this visit: yes, but has since been removed by the nurse Reason for continuing: Not indwelling catheter Insertion date: 05/08/18 Insertion time: 11:20 Removal date: 05/08/18 Removal time: 16:00 Results - Labs Labs: Laboratory Results - last 24 hr 05/08/18 05:58 Blood Type B Negative Blood Type Recheck Required Antibody Screen Negative - Imaging Impressions Knee X-Ray 05/08/18 07:25 CONCLUSION: Status post total knee arthroplasty. Emmanuel Basurto MD FACR Assessment and Plan - Plan 82-year-old female with past medical history significant for arthritis , hypertension, borderline diabetes, DVTs and brain bleed who presents to [place] for total right knee arthroplasty due to osteoarthritis of right knee. [facility] consulted to assist with ongoing medical management. Osteoarthritis, chronic right knee - s/p right knee arthroplasty -Pain control with [place], bowel program -PT following Hx DVT's anticoagulated on Eliquis IVC filter in place -Eliquis resumed by Ortho, monitor for bleeding. Subdural hematomas 10/2017 -Hx bur hole, stable since she has been on Eliquis Hypertension, newly diagnosed -Continue home dose lisinopril -Monitor BP and adjust medications accordingly DVT prophylaxisEliquis Thank you Dr. Chisholm for this consultation, will continue to follow along.
[2018-05-09] MEDS: ceFAZolin 1 GM Premix Inj 1 GM/50 ML IV.SIG SCH (01:26)
[2018-05-09 05:37] LABS: Hematocrit 25.8 % (35.0-46.0); Hemoglobin 8.8 gm/dL (11.6-15.3)
[2018-05-09] MEDS: Timolol 0.25% Drops 5 ML Bottle EACH EYE SCH (09:00)
[2018-05-09] MEDS: Senna/Docusate Sodium 8.6/50 MG Tablet PO SCH ×2 (09:07→20:40)
[2018-05-09] MEDS: Multivitamin/Minerals Therapeutic Tablet PO SCH ×2 (09:07→20:40)
[2018-05-09] MEDS: Gabapentin 300 MG Capsule PO SCH ×2 (09:07→20:40)
[2018-05-09] MEDS: Lisinopril 20 MG Tablet PO SCH (09:07)
[2018-05-09] MEDS: Famotidine 20 MG Tablet PO SCH ×2 (09:07→20:41)
--- NOTE | 2018-05-09 09:49 | P.PNOP ---
Subjective Interval history: Patient complaining of pain in the operative site today. No more nausea. Physical Exam Vital signs: Vital Signs 05/08/18 10:01 05/08/18 10:15 05/08/18 10:30 Temperature 98.4 F Pulse Rate 55 L 49 L 48 L Respiratory Rate 12 13 11 L Blood Pressure 163/73 H 80/44 L 101/51 L Pulse Oximetry 99 99 96 05/08/18 10:45 05/08/18 11:00 05/08/18 11:15 Temperature Pulse Rate 50 L 65 56 L Respiratory Rate 20 21 21 Blood Pressure 132/61 132/60 144/64 H Pulse Oximetry 100 100 100 05/08/18 11:18 05/08/18 12:00 05/08/18 13:00 Temperature Pulse Rate 50 L 48 L Respiratory Rate 16 20 Blood Pressure 157/66 H 131/60 Pulse Oximetry 100 100 100 05/08/18 14:00 05/08/18 15:00 05/08/18 16:00 Temperature 97.5 F L Pulse Rate 67 55 L 60 Respiratory Rate 15 16 16 Blood Pressure 149/65 H 142/66 H 130/63 Pulse Oximetry 100 100 100 05/08/18 16:30 05/08/18 20:00 05/09/18 00:00 Temperature 98.5 F 98.0 F Pulse Rate 61 80 73 Respiratory Rate 14 18 18 Blood Pressure 132/61 108/55 L 102/55 L Pulse Oximetry 100 95 96 05/09/18 04:00 05/09/18 08:00 Temperature 98.9 F 98.4 F Pulse Rate 71 73 Respiratory Rate 18 17 Blood Pressure 107/52 L 129/60 Pulse Oximetry 93 L 96 Intake & Output 05/08/18 05/09/18 05/09/18 18:59 06:59 18:59 Intake Total 1622 / 1622 1000 / 1000 Output Total 1200 / 1200 Balance 422 / 422 1000 / 1000 Weight 81.2 kg Intake: IV 622 / 622 1000 / 1000 LR 1000 mL Inj 1,000 ML @ 80 272 / 272 900 / 900 mls/hr IV.CONT .[id number] [facility] Rx# :[id number] Vancomycin Inj 1,000 MG In NS 250 / 250 Inj 250 ML @ 250 mls/hr IV.SIG SLIP TENDER [facility] Rx#:[id number] Ancef 1 GM Premix Inj 1 gm In 50 / 50 100 / 100 50 ml @ 100 mls/hr IV.SIG Q6H [facility] Rx#:[id number] Ancef 2 GM Premix Inj 2 gm In 50 / 50 50 ml @ 100 mls/hr IV.SIG SLIP TENDER [facility] Rx#:[id number] Anesthesia Amount 1000 / 1000 Output: Estimated Blood Loss 400 / 400 Urine Amount (Catheter) 800 / 800 Straight 800 / 800 Other: Post Void Residual 0 # Voids 2 Date of Last Bowel Movement 05/07/18 - Constitutional no acute distress - Urinary Catheter Management Straight Cath placed during this visit: yes, but has since been removed by the nurse Reason for continuing: Not indwelling catheter Insertion date: 05/08/18 Insertion time: 11:20 Removal date: 05/08/18 Removal time: 16:00 Results - Labs CBC & Chem 7: 05/09/18 04:18 Laboratory Results - last 24 hr 05/09/18 04:18 Hgb 8.8 L Hct 25.8 L - Imaging Impressions Knee X-Ray 05/08/18 07:25 CONCLUSION: Status post total knee arthroplasty. Emmanuel Basurto MD FACR Assessment and Plan - Attending Attestation Attending Attestation: Sitting up in chair. Neurovascularly intact to toes. No calf tenderness. Plan is for patient to continue with physical therapy today and eventually be discharged to [place] [facility] for further care.
--- NOTE | 2018-05-09 11:43 | P.PN ---
Subjective Interval history: Follow-up visit for right knee arthroplasty postop day 1., History of DVTs anticoagulated on Eliquis, history of subdural hematoma. Patient seen and examined sitting up in recliner out of bed in no acute distress. Complaints of some nausea yesterday, this morning no further nausea, able to eat breakfast without any issues. She also reports that her throat discomfort has improved. Denies any fevers, chills, N/V/D, cough or SOB. Had some hesitancy with urination, but was able to urinate. She would [facility] to go to [facility]. Voices no other acute concerns at the moment. Physical Exam Vital signs: Vital Signs 05/08/18 12:00 05/08/18 13:00 05/08/18 14:00 Temperature Pulse Rate 50 L 48 L 67 Respiratory Rate 16 20 15 Blood Pressure 157/66 H 131/60 149/65 H Pulse Oximetry 100 100 100 05/08/18 15:00 05/08/18 16:00 05/08/18 16:30 Temperature 97.5 F L Pulse Rate 55 L 60 61 Respiratory Rate 16 16 14 Blood Pressure 142/66 H 130/63 132/61 Pulse Oximetry 100 100 100 05/08/18 20:00 05/09/18 00:00 05/09/18 04:00 Temperature 98.5 F 98.0 F 98.9 F Pulse Rate 80 73 71 Respiratory Rate 18 18 18 Blood Pressure 108/55 L 102/55 L 107/52 L Pulse Oximetry 95 96 93 L 05/09/18 08:00 Temperature 98.4 F Pulse Rate 73 Respiratory Rate 17 Blood Pressure 129/60 Pulse Oximetry 96 Intake & Output 05/08/18 05/09/18 05/09/18 18:59 06:59 18:59 Intake Total 1622 / 1622 1000 / 1000 1000 / 1000 Output Total 1200 / 1200 Balance 422 / 422 1000 / 1000 1000 / 1000 Weight 81.2 kg Intake: IV 622 / 622 1000 / 1000 1000 / 1000 LR 1000 mL Inj 1,000 ML @ 80 272 / 272 900 / 900 1000 / 1000 mls/hr IV.CONT .[id number] [facility] Rx# :[id number] Vancomycin Inj 1,000 MG In NS 250 / 250 Inj 250 ML @ 250 mls/hr IV.SIG DECK SUPERVISOR [facility] Rx#:[id number] Ancef 1 GM Premix Inj 1 gm In 50 / 50 100 / 100 50 ml @ 100 mls/hr IV.SIG Q6H [facility] Rx#:[id number] Ancef 2 GM Premix Inj 2 gm In 50 / 50 50 ml @ 100 mls/hr IV.SIG DECK SUPERVISOR [facility] Rx#:[id number] Anesthesia Amount 1000 / 1000 Output: Estimated Blood Loss 400 / 400 Urine Amount (Catheter) 800 / 800 Straight 800 / 800 Other: Post Void Residual 0 # Voids 2 Date of Last Bowel Movement 05/07/18 05/07/18 Narrative: GENERAL: Well-developed, well-nourished female sitting up in bed in no acute distress. SKIN: Warm and dry. HEAD: Atraumatic. Normocephalic. EYES: Pupils equal/round. No scleral icterus. No injection or drainage. ENT: No nasal bleeding or discharge. Mucous membranes pink and moist. Minimal uvula edema noted. NECK: Trachea midline. CARDIOVASCULAR: Regular rate and rhythm. RESPIRATORY: No accessory muscle use. Clear to auscultation. Breath sounds equal bilaterally. GASTROINTESTINAL: Abdomen soft, non-tender, nondistended. + Bowel sounds MUSCULOSKELETAL: Extremities without clubbing, cyanosis, or edema. No obvious deformities. NEUROLOGICAL: Awake, alert, oriented x3. No obvious cranial nerve deficits. Motor grossly within normal limits. 5/5 bilateral upper and left lower extremity strength, RLE limited due to surgery. +movement, sensation, warm, capillary refill <3 seconds. Normal speech. PSYCHIATRIC: Appropriate mood and affect; insight and judgment normal. - Urinary Catheter Management Straight Cath placed during this visit: yes, but has since been removed by the nurse Reason for continuing: Not indwelling catheter Insertion date: 05/08/18 Insertion time: 11:20 Removal date: 05/08/18 Removal time: 16:00 Results - Labs CBC & Chem 7: 05/09/18 04:18 Laboratory Results - last 24 hr 05/09/18 04:18 Hgb 8.8 L Hct 25.8 L Assessment and Plan - Plan 82-year-old female with past medical history significant for arthritis , hypertension, borderline diabetes, DVTs and brain bleed who presents to [place] for total right knee arthroplasty due to osteoarthritis of right knee. [facility] consulted to assist with ongoing medical management. Osteoarthritis, chronic right knee - s/p right knee arthroplasty 05/08 -Pain control with [place], bowel program -PT following, plan if for CIR DC Hx DVT's anticoagulated on Eliquis IVC filter in place -Continue Eliquis Subdural hematomas 10/2017 -Hx bur hole, stable since she has been on Eliquis Hypertension, newly diagnosed -Continue home lisinopril, BP on the lower side, decrease to 10mg daily -Monitor BP and adjust medications accordingly DVT prophylaxisEliquis Medically stable, [facility] will sign off please reconsult if needed. Discussed Condition With: Patient, RN and Discharge Planning: DC to [facility], likely tomorrow.
[2018-05-10 05:13] LABS: Hematocrit 25.5 % (35.0-46.0); Hemoglobin 8.7 gm/dL (11.6-15.3)
--- NOTE | 2018-05-10 08:26 | P.PNOP ---
Subjective Interval history: Patient comfortable today with minimal complaints. She states she has a hard time standing because she has pain in the opposite knee as well. Physical Exam Vital signs: Vital Signs 05/09/18 12:00 05/09/18 16:00 05/09/18 20:00 Temperature 97.8 F 97.9 F 98.7 F Pulse Rate 75 72 90 Respiratory Rate 17 17 20 Blood Pressure 100/59 L 111/53 L 118/67 Pulse Oximetry 96 96 92 L 05/10/18 00:00 Temperature 98.8 F Pulse Rate 80 Respiratory Rate 20 Blood Pressure 108/55 L Pulse Oximetry 92 L Intake & Output 05/09/18 05/10/18 05/10/18 18:59 06:59 18:59 Intake Total 1000 / 1000 240 / 240 Balance 1000 / 1000 240 / 240 Weight 81.3 kg Intake: IV 1000 / 1000 0 / 0 LR 1000 mL Inj 1,000 ML @ 80 1000 / 1000 0 / 0 mls/hr IV.CONT .[id number] [facility] Rx# :[id number] Oral 240 / 240 Other: # Voids 2 3 Date of Last Bowel Movement 05/07/18 05/07/18 - Constitutional no acute distress - Urinary Catheter Management Straight Cath placed during this visit: yes, but has since been removed by the nurse Reason for continuing: Not indwelling catheter Insertion date: 05/08/18 Insertion time: 11:20 Removal date: 05/08/18 Removal time: 16:00 Results - Labs CBC & Chem 7: 05/10/18 04:23 Laboratory Results - last 24 hr 05/10/18 04:23 Hgb 8.7 L Hct 25.5 L Assessment and Plan - Attending Attestation Attending Attestation: Patient doing fairly well. She needs aggressive physical therapy at [place] if possible. Continue therapy here. Her dressing is dry and intact and she is neurovascular intact to her toes. No calf tenderness.
[2018-05-10] MEDS: Multivitamin/Minerals Therapeutic Tablet PO SCH ×2 (10:04→20:40)
[2018-05-10] MEDS: Gabapentin 300 MG Capsule PO SCH ×2 (10:04→20:39)
[2018-05-10] MEDS: Lisinopril 10 MG Tablet PO SCH (10:04)
[2018-05-10] MEDS: Senna/Docusate Sodium 8.6/50 MG Tablet PO SCH ×2 (10:04→20:39)
[2018-05-10] MEDS: Famotidine 20 MG Tablet PO SCH ×2 (10:14→20:39)
[2018-05-10] MEDS: Timolol 0.25% Drops 5 ML Bottle EACH EYE SCH (17:44)
[2018-05-11] MEDS: Lisinopril 10 MG Tablet PO SCH (08:36)
[2018-05-11] MEDS: Gabapentin 300 MG Capsule PO SCH ×2 (08:36→20:41)
[2018-05-11] MEDS: Timolol 0.25% Drops 5 ML Bottle EACH EYE SCH (08:37)
[2018-05-11] MEDS: Senna/Docusate Sodium 8.6/50 MG Tablet PO SCH ×2 (08:37→20:42)
[2018-05-11] MEDS: Famotidine 20 MG Tablet PO SCH ×2 (08:37→20:42)
[2018-05-11] MEDS: Multivitamin/Minerals Therapeutic Tablet PO SCH ×2 (08:37→20:42)
--- NOTE | 2018-05-11 11:55 | P.PNOP ---
Subjective Interval history: Patient fairly comfortable today. Physical Exam Vital signs: Vital Signs 05/10/18 12:00 05/10/18 16:00 05/10/18 17:13 Temperature 97.1 F L 98.8 F Pulse Rate 84 80 Respiratory Rate 16 16 16 Blood Pressure 97/51 L 118/54 L Pulse Oximetry 94 L 99 05/10/18 19:20 05/10/18 23:27 05/11/18 08:00 Temperature 99.7 F H 99.2 F 98.6 F Pulse Rate 102 H 91 H 76 Respiratory Rate 19 18 16 Blood Pressure 119/56 L 114/53 L 122/58 L Pulse Oximetry 94 L 93 L 96 Intake & Output 05/10/18 05/11/18 05/11/18 18:59 06:59 18:59 Intake Total 600 / 600 360 / 360 Balance 600 / 600 360 / 360 Weight 81.3 kg Intake: Oral 600 / 600 360 / 360 Other: # Voids 4 1 Date of Last Bowel Movement 05/07/18 05/07/18 05/11/18 # Bowel Movements 0 - Constitutional no acute distress - Urinary Catheter Management Straight Cath placed during this visit: yes, but has since been removed by the nurse Reason for continuing: Not indwelling catheter Insertion date: 05/08/18 Insertion time: 11:20 Removal date: 05/08/18 Removal time: 16:00 Results - Labs CBC & Chem 7: 05/10/18 04:23 Assessment and Plan - Attending Attestation Attending Attestation: Patient currently in bed. Dressing is dry and intact and she is neurovascular intact to her toes. Plan is for the patient to go to rehab as soon as she can for continuation of care and physical therapy. Eventual follow-up in the office for recheck.
--- NOTE | 2018-05-11 12:34 | MD ---
cc: Maddy Chisholm MD DATE OF DISCHARGE: ADMITTING DIAGNOSIS: Osteoarthritic degeneration of right knee. DISCHARGE DIAGNOSIS: Osteoarthritic degeneration of right knee. DISCHARGE SUMMARY IS FOLLOWS: This is an 82-year-old female who was admitted 05/08/2018 with severe osteoarthritic degeneration valgus deformity, right knee at which time she underwent a right total knee arthroplasty. She received a course of prophylactic IV antibiotics and within 23 hours began on anticoagulation therapy. She continued to improve, tolerating food and fluids well on p.o. pain medication, physical therapy twice a day; was [facility] to a [facility] facility on the third postoperative day in good condition with instructions for continuation of care. Maddy Chisholm MD JRR/ld , 11:59 AM , 12:03 PM
[2018-05-12] MEDS: Lisinopril 10 MG Tablet PO SCH (08:59)
[2018-05-12] MEDS: Gabapentin 300 MG Capsule PO SCH (08:59)
[2018-05-12] MEDS: Famotidine 20 MG Tablet PO SCH (08:59)
[2018-05-12] MEDS: Multivitamin/Minerals Therapeutic Tablet PO SCH (08:59)
[2018-05-12] MEDS: Senna/Docusate Sodium 8.6/50 MG Tablet PO SCH (09:04)
[2018-05-12] MEDS: Timolol 0.25% Drops 5 ML Bottle EACH EYE SCH (09:04)
== END 2018-05-12 15:17 ==
LOC: HSDI 05:13 → N06 16:45
PROVIDERS: ADMIT Surgery; ATTEND Surgery

== ENCOUNTER 2018-05-17 12:01 | Inpatient (IN) ==
[2018-05-17 13:05] LABS: Baso % (Auto) 0.6 % (0.0-2.0); Eos # (Auto) 0.1 th/mm3 (0.0-0.4); Eos % (Auto) 1.6 % (0.0-4.0); Hematocrit 26.1 % (35.0-46.0); Hemoglobin 8.7 gm/dL (11.6-15.3); Lymph # (Auto) 1.9 th/mm3 (1.0-4.8); Lymph % (Auto) 25.2 % (9.0-44.0); Mean Corpuscular HGB Conc 33.4 % (32.0-36.0); Mean Corpuscular Hemoglobin 31.6 pg (27.0-34.0); Mean Corpuscular Volume 94.4 fL (80.0-100.0); Mono # (Auto) 0.8 th/mm3 (0.0-0.9); Mono % (Auto) 10.5 % (0.0-8.0); Neut # (Auto) 4.8 th/mm3 (1.8-7.7); Neut % (Auto) 62.1 % (16.0-70.0); Platelet Count 526 th/mm3 (150-450); Red Blood Count 2.77 mil/mm3 (4.00-5.30); Red Cell Distribution Width 14.5 % (11.6-17.2); White Blood Count 7.6 th/mm3 (4.0-11.0)
[2018-05-17 13:16] LABS: Activated Partial Thrombo Time 26.4 sec (23.4-31.7); Prothrombin Time 10.6 sec (9.8-11.6)
[2018-05-17 13:27] LABS: Alanine Aminotransferase 21 U/L (10-53); Albumin 2.4 g/dL (3.4-5.0); Anion Gap 7 meq/L (5-15); Aspartate Aminotransferase 17 U/L (15-37); Blood Urea Nitrogen 10 mg/dL (7-18); Carbon Dioxide 28.4 meq/L (21.0-32.0); Chloride 104 meq/L (98-107); Glomerular Filtration Rate Greater Than 89 mL/min (>89); Glucose,Random 99 mg/dL (74-106); Potassium 4.1 meq/L (3.5-5.1); Sodium 139 meq/L (136-145)
[2018-05-17 13:29] LABS: Alkaline Phosphatase 94 U/L (45-117); Total Protein 7.1 g/dL (6.4-8.2)
--- NOTE | 2018-05-17 13:35 | US ---
EXAM DATE: 05/17/2018 1:21 PM EST AGE/SEX: 82 years / Female INDICATIONS: Status post right knee replacement. Pain and swelling. CLINICAL DATA: This is the patient's initial encounter. Patient reports that signs and symptoms have been present for 3 days and indicates a pain score of 10/10. MEDICAL/SURGICAL HISTORY: . DVT. PE. . Brain surgery. Right knee replacement. COMPARISON: No prior exams available for comparison. TECHNIQUE: Venous ultrasound of both lower extremities was performed from the inguinal ligament to t he proximal calf. Real-time, color Doppler and spectral tracing, compression and augmentation techni ques were used. FINDINGS: Normal compression of the deep venous system from the inguinal region to the proximal calf . No echogenic clot is seen. Normal response of the venous system to augmentation and respiration. CONCLUSION: 1. The study is negative for lower extremity deep venous thrombosis. Electronically signed by: Buster Johnson MD Board Certified Radiologist 05/17/2018 1:34 PM EST
--- NOTE | 2018-05-17 15:19 | P.CONREH ---
History of Present Illness Service: Physical medicine and rehabilitation Reason for Consult: Comprehensive rehabilitation evaluation Primary Care Provider: Justin Sarabia History of Present Illness: Dianna Lechuga is an 82-year-old ixiqm-egqr-hpgwbbps female with a past medical history of GERD, neuropathy, and DVT/PE who was previously admitted to [facility] 11/22/17 with history of frequent falls. Head CT showed large bilateral subdural hematomas. She underwent bur hole evacuation 11/22/17. Her course included fever with leukocytosis. She was subsequently admitted to [facility] for inpatient rehabilitation 12/03/17. She was then discharged home 12/26/17. On 05/08/18 she was admitted with severe osteoarthritis of the right knee and underwent right total knee replacement. On 05/12/18 she was discharged to care home facility. She was evaluated in her orthopedic surgeon's outpatient clinic earlier today and was noted to have a wound in the area of CKS as well as increased pain and warmth in the right lower extremity. Venous ultrasound is negative for DVT. Review of Systems Constitutional: Reports lack of energy, Denies headache(s) Eyes: Denies double vision Ears, Nose, Mouth, and Throat: Denies abnormal hearing, Denies difficulty swallowing Cardiovascular: Denies chest pain Respiratory: Reports cough Gastrointestinal: Reports constipation, Denies abdominal pain Genitourinary: Denies urinary incontinence Musculoskeletal: Reports abnormal walking, Reports joint pain Skin/Breast: Reports sores (Right posterior calf) Neurologic: Denies confusion, Denies dizziness PMFSH - History History Provided By: Patient - Medical History Medical History: Medical History (Last Reviewed 05/20/18 @ 16:30 by Jennie De Los Santos DO) DVT (deep venous thrombosis) (Acute) Back pain (Acute) Knee pain, bilateral (Acute) Arthritis (Chronic) GERD (gastroesophageal reflux disease) (Chronic) Presence of vena cava filter Skin cancer - Surgical History Surgical History: Surgical History (Last Reviewed 05/20/18 @ 16:30 by Jennie De Los Santos DO) History of tiarra hole surgery (Resolved) History of knee replacement - Family History Family History: Family History (Last Reviewed 05/20/18 @ 16:30 by Jennie De Los Santos DO) Mother Diabetes CVA (cerebral vascular accident) Coronary artery disease Father Smoking Lung cancer Sister Diabetes - Tobacco History Second Hand Smoke Exposure: No Smoking Status: Former smoker - Alcohol History How Often Do You Have a Drink Containing Alcohol: Monthly or less - Substance Use History Substance History: No History of Abuse - Travel History Recent Travel in the [place] Within the Last 8 Weeks: No Recent Travel Out of the Country Within the Last 8 Weeks: No - Immunization History Tetanus Immunization: <5 Years Medications and Allergies Allergies Allergy/AdvReac Type Severity Reaction Status Date / Time Iodinated Contrast- Oral and Allergy Severe Hives Verified 05/20/18 17:42 IV Dye [Contrast] Home Medications Medication Instructions Recorded Confirmed Type apixaban [Eliquis] 2.5 mg PO BID 05/01/18 05/19/18 History gabapentin 900 mg PO BID 05/01/18 05/19/18 History mzxowsgqbmtj-pdoa-gmhww acid 1 tab PO DAILY 05/01/18 05/19/18 History [Centrum Complete] lisinopril 20 mg PO DAILY 05/08/18 05/19/18 History timolol 1 drp OPHTHALMIC (EYE) DAILY 05/08/18 05/19/18 History lansoprazole [Prevacid] 30 mg PO DAILY 05/17/18 05/19/18 History Exam - Physical Examination Vital Signs / I&O: Vital Signs 05/17/18 12:03 05/17/18 12:16 Temperature 97.7 F Pulse Rate 68 72 Respiratory Rate 18 23 Blood Pressure 122/60 139/60 Pulse Oximetry 97 Intake & Output 05/16/18 05/17/18 05/17/18 18:59 06:59 18:59 Weight 68.039 kg Intake & Output 05/15/18 05/16/18 05/17/18 05/18/18 06:59 06:59 06:59 06:59 Weight 68.039 kg General: No acute distress, Other (Awake and alert; answers questions appropriately and follows commands well; family at bedside.) Respiratory: Lungs CTA, Non-labored respirations, BS equal (Decreased breath sounds in the bases) Gastrointestinal: Positive bowel sounds, Non-distended, Non-tender Cardiovascular: Normal rate, Regular rhythm Skin: Wound(s) (Right posterior lateral calf) Musculoskeletal: ROM (Limited at the right knee), Tenderness (Right knee and calf), Swelling (2+ distal to the knee right) Psychiatric: Cooperative, Appropriate mood & affect - Neurologic Orientation: oriented to: Self, Place, Time, Situation Neurologic: Cranial nerves (Intact 2 through 12) Motor: Right Upper Extremity (5/5), Left Upper Extremity (5/5), Right Lower Extremity (Limited testing but ankle is 4/5), Left Lower Extremity (4/5) Sensory: Present but impaired in the distal right lower extremity Results - Labs CBC & Chem 7: 05/17/18 12:55 05/17/18 12:55 Labs: Laboratory Results - last 24 hr 05/17/18 05/17/18 05/17/18 12:55 12:55 12:55 WBC 7.6 RBC 2.77 L Hgb 8.7 L Hct 26.1 L MCV 94.4 MCH 31.6 MCHC 33.4 RDW 14.5 Plt Count 526 H D MPV 7.0 Neut % (Auto) 62.1 Lymph % (Auto) 25.2 [place] % (Auto) 10.5 H Eos % (Auto) 1.6 Baso % (Auto) 0.6 Neut # (Auto) 4.8 Lymph # (Auto) 1.9 [place] # (Auto) 0.8 Eos # (Auto) 0.1 Baso # (Auto) 0.0 WBC Differential . Differential Comment Auto diff final PT 10.6 INR 1.0 APTT 26.4 Sodium 139 Potassium 4.1 Chloride 104 Carbon Dioxide 28.4 Anion Gap 7 BUN 10 Creatinine 0.56 Estimated GFR Greater than 89 Random Glucose 99 Calcium 8.0 L Total Bilirubin 0.6 AST 17 ALT 21 Alkaline Phosphatase 94 Total Protein 7.1 D Albumin 2.4 L - Imaging Impressions Venous Doppler Study 05/17/18 12:17 CONCLUSION: 1. The study is negative for lower extremity deep venous thrombosis. Assessment and Plan (1) Status post total right knee replacement using cement Status: Acute Code(s): Z96.651 - Presence of right artificial knee joint (2) Cellulitis Status: Acute Code(s): L03.90 - Cellulitis, unspecified (3) Personal history of DVT (deep vein thrombosis) Status: Chronic Code(s): Z86.718 - Personal history of other venous thrombosis and embolism (4) History of pulmonary embolism Status: Chronic Code(s): Z86.711 - Personal history of pulmonary embolism - Plan Assessment: 1. Severe right knee osteoarthritis status post right total knee replacement now with increased pain, limited range of motion, tenderness and edema and skin breakdown right posterior calf consistent with early cellulitis. Patient has been started on Unasyn. 2. GERD 3. Neuropathy 4. History of DVT/PE 5. History of falls with bilateral subdural hematomas Recommendations: 1. PT consult to mobilize 2. OT consult for ADL's 3. Patient will benefit from ongoing inpatient rehabilitation. Case management to assist with discharge planning. 4. Will follow while hospitalized and at discharge as appropriate Thank you for this consult. Discussed with Dr. Obrien. (2) Cellulitis Qualifiers:
--- NOTE | 2018-05-17 15:48 | P.HPIM ---
History of Present Illness Primary Care Physician: Justin Sarabia Chief Complaint: DVT? History of Present Illness: This is an 82-year-old female with history of DVT, neuropathy, frequent falls status post intracranial hemorrhage in October, status post bur hole placement with evacuation of the bleed, was discharge to [facility] after hospitalization. Subsequently discharged to home December 26, 2017. She was recently admitted in the hospital 05/08/2018 for severe osteoarthritis status post right knee arthroplasty, she was then discharged to shelter facility. The shelter facility, there was suspicion of lower extremity DVT hence patient was sent to the hospital. Per patient, when she was discharged she has right lower extremity ecchymosis but no right lower extremity /calf pain but since doing therapy, she started having increasing severe pain of the right lower extremity, associated with increased swelling and redness. Patient denies any fever, chills, nausea, vomiting, chest pain, shortness of breath, dysuria, frequency, urgency or diarrhea. No history of blood clots in the family. Diagnosis (1) Cellulitis: (2) DVT (deep venous thrombosis): (3) Status post total right knee replacement using cement: Review of Systems Review of Systems: all other systems reviewed are negative [facility] Medical History Medical History DVT (deep venous thrombosis) (Acute) Back pain (Acute) Knee pain, bilateral (Acute) Arthritis (Acute) GERD (gastroesophageal reflux disease) (Acute) Presence of vena cava filter (Acute) Skin cancer (Acute) Surgical History Surgical History History of tiarra hole surgery (Resolved) History of knee replacement (Acute) Family History Family History Other Family history of cancer Social History Social History Substance History: No History of Abuse Second Hand Smoke Exposure: No Smoking Status: Former smoker How Often Do You Have a Drink Containing Alcohol: Monthly or less Recent Travel in [place] within the Last 8 Weeks: No Recent Out of Country Travel within the Last 8 Weeks: No Immunization History Tetanus Immunization: <5 Years Medications and Allergies Allergies Allergy/AdvReac Type Severity Reaction Status Date / Time Iodinated Contrast- Oral and Allergy Hives Verified 05/01/18 09:30 IV Dye [Contrast] Home Medications Medication Instructions Recorded Confirmed Type apixaban [Eliquis] 2.5 mg PO BID 05/01/18 05/17/18 History famotidine [Pepcid] 40 mg PO BID 05/01/18 05/17/18 History gabapentin 900 mg PO BID 05/01/18 05/17/18 History zeyqamutgfst-oqeg-affbe acid 1 tab PO DAILY 05/01/18 05/17/18 History [Centrum Complete] lisinopril 20 mg PO DAILY 05/08/18 05/17/18 History timolol 1 drp OPHTHALMIC (EYE) DAILY 05/08/18 05/17/18 History lansoprazole [Prevacid] 30 mg PO DAILY 05/17/18 05/17/18 History Physical Exam Vital signs: Last Vital Signs Temp 97.7 F 05/17/18 12:03 Pulse 72 05/17/18 12:16 Resp 23 05/17/18 12:16 BP 139/60 05/17/18 12:16 Pulse Ox 97 05/17/18 12:16 Intake & Output 05/15/18 05/16/18 05/17/18 05/18/18 06:59 06:59 06:59 06:59 Weight 68.039 kg Narrative: Not in distress, well-nourished, looks stated age PERRL, pink conjunctiva without injection, anicteric Nose without bleeding, airway patent Supple neck Normal rate and regular rhythm, no murmurs gallops or rubs appreciated. Clear to auscultation and symmetric bilaterally, normal respiratory effort. Normal bowel sounds, soft, non-tender, nondistended, no guarding. Left lower extremity and ZOHAIB stockings. Right lower extremity, right knees status post surgery, incisions healing well, no open wound. There is a superficial abrasion, about 1.5 cm posterior aspect of the right calf, with 2+ edema from right foot to right calf, very tender to touch, warm, with erythema. No discharge from the wound. AAO x3, no cranial nerve deficits, moves all 4 extremities, no focal neurologic deficits Results Labs CBC & Chem 7: 05/17/18 12:55 05/17/18 12:55 Imaging Impressions Venous Doppler Study 05/17/18 12:17 CONCLUSION: 1. The study is negative for lower extremity deep venous thrombosis. Caprini VTE Risk Assessment Caprini VTE Risk Assessment: Moderate/High Risk (score >= 2) Caprini Risk Assessment Model: Point Value = 1 Point Value = 2 Point Value = 3 Point Value = 5 Age 41-60 Minor surgery BMI > 25 kg/m2 Swollen legs Varicose veins or History of unexplained or recurrent spontaneous Oral contraceptives or hormone replacement Sepsis (< 1 month) Serious lung disease, including pneumonia (< 1 month) Abnormal pulmonary function Acute myocardial infarction Congestive heart failure (< 1 month) History of inflammatory bowel disease Medical patient at bed rest Age 61-74 Arthroscopic surgery Major open surgery (> 45 min) Laparoscopic surgery (> 45 min) Malignancy Confined to bed (> 72 hours) Immobilizing plaster cast Central venous access Age >= 75 History of VTE Family history of VTE Factor V Leiden Prothrombin [id number] Lupus anticoagulant Anticardiolipin antibodies Elevated serum homocysteine Heparin-induced thrombocytopenia Other congenital or acquired thrombophilia Stroke (< 1 month) Elective arthroplasty Hip, pelvis, or leg fracture Acute spinal cord injury (< 1 month) Prophylaxis Regimen: Total Risk Factor Score Risk Level Prophylaxis Regimen 0-1 Low Early ambulation 2 Moderate Order ONE of the following: *Sequential Compression Device (SCD) *Heparin 5000 units SQ BID 3-4 Higher Order ONE of the following medications: *Heparin 5000 units SQ TID *Enoxaparin/Lovenox 40 mg SQ daily (WT < 150 kg, CrCl > 30 mL/min) *Enoxaparin/Lovenox 30 mg SQ daily (WT < 150 kg, CrCl > 10-29 mL/min) *Enoxaparin/Lovenox 30 mg SQ BID (WT < 150 kg, CrCl > 30 mL/min) AND/OR *Sequential Compression Device (SCD) 5 or more Highest Order ONE of the following medications: *Heparin 5000 units SQ TID (Preferred with Epidurals) *Enoxaparin/Lovenox 40 mg SQ daily (WT < 150 kg, CrCl > 30 mL/min) *Enoxaparin/Lovenox 30 mg SQ daily (WT < 150 kg, CrCl > 10-29 mL/min) *Enoxaparin/Lovenox 30 mg SQ BID (WT < 150 kg, CrCl > 30 mL/min) AND *Sequential Compression Device (SCD) Assessment and Plan (1) Cellulitis: Code(s): L03.90 - Cellulitis, unspecified Status: Acute (2) DVT (deep venous thrombosis): Code(s): I82.409 - Acute embolism and thrombosis of unspecified deep veins of unspecified lower extremity Status: Acute (3) Status post total right knee replacement using cement: Code(s): Z96.651 - Presence of right artificial knee joint Status: Acute Plan [place] for pain control.This is an 82-year-old female with past medical history significant for arthritis, hypertension, borderline diabetes, DVTs and brain bleed who presents to [place] for total right knee arthroplasty due to osteoarthritis of right knee. Right calf cellulitis-beginning cellulitis, start Unasyn, no leukocytosis, no fever. Right lower extremity ultrasound negative for DVT. Switch to Augmentin when ready to go home. [place] for pain control. Osteoarthritis, chronic right knee - s/p right knee arthroplasty 05/08, continue pain control with [place], [facility], consult PMR. Consult PT OT. Anemia-stable, check iron panel, MCV is within normal limits including RDW Hx DVT's anticoagulated on Eliquis IVC filter in place -US Doppler done on the left lower extremity, negative for DVT, continue Eliquis Subdural hematomas 10/2017 -Hx bur hole, stable since she has been on Eliquis Hypertension, newly diagnosed -Continue home lisinopril 20 mg daily. DVT prophylaxisEliquis _ (1) DVT (deep venous thrombosis) Qualifiers: DVT location: lower extremity Affected thrombotic vein of extremity: unspecified vein of extremity Chronicity: acute Laterality: left Qualified Code(s): I82.402 - Acute embolism and thrombosis of unspecified deep veins of left lower extremity
[2018-05-17] MEDS ORDERED: Aluminum/Magnesium/Simethacone Susp 30 ML UDC PO PRN (15:51)
[2018-05-17] MEDS ORDERED: Bisacodyl 10 MG Supp RECTAL PRN (15:51)
[2018-05-17] MEDS ORDERED: Acetaminophen 325 MG Tablet PO PRN ×2 (15:51→16:09)
[2018-05-17] MEDS ORDERED: Naloxone Inj 0.4 MG/ML Vial IV.PUSH PRN (16:09)
--- NOTE | 2018-05-17 16:17 | ED ---
HPI General Chief complaint: Recheck/Abnormal Lab/Rx Stated complaint: PHY sent/Poss blood clot Time Seen by Provider: 05/17/18 12:17 Source: patient, RN notes reviewed and old records reviewed Mode of arrival: ambulatory Limitations: no limitations History of Present Illness HPI narrative: [id number] woman presents to the emergency department complaining of right leg pain and swelling. She has a history of thrombophilia and is on oral anticoagulation. She had a head bleed back this past summer with resulting debility and weakness. She underwent a total knee arthroplasty with Dr. Chisholm of a week ago. She was transferred to half-way facility and she saw him today in the office, he is concerned about swelling of the leg, wound on the back of the leg, possible DVT, and worsening poor function. I spoke to him on the phone prior to the patient's arrival, he would like her evaluated for DVT, and admission to inpatient rehabilitation if possible. Related Data Home Medications Medication Instructions Recorded Confirmed apixaban [Eliquis] 2.5 mg PO BID 05/01/18 05/17/18 famotidine [Pepcid] 40 mg PO BID 05/01/18 05/17/18 gabapentin 900 mg PO BID 05/01/18 05/17/18 zzoasgforops-lrpm-ajlqi acid 1 tab PO DAILY 05/01/18 05/17/18 [Centrum Complete] lisinopril 20 mg PO DAILY 05/08/18 05/17/18 timolol 1 drp OPHTHALMIC (EYE) DAILY 05/08/18 05/17/18 lansoprazole [Prevacid] 30 mg PO DAILY 05/17/18 05/17/18 Previous Rx's Medication Instructions Recorded hydrocodone-acetaminophen 1 tab PO Q4H PRN 7 Days #42 tab 05/11/18 Allergies Allergy/AdvReac Type Severity Reaction Status Date / Time Iodinated Contrast- Oral and Allergy Hives Verified 05/01/18 09:30 IV Dye [Contrast] Review of Systems ROS: all other systems reviewed are negative [facility] Medical History Medical History DVT (deep venous thrombosis) (Acute) Back pain (Acute) Knee pain, bilateral (Acute) Arthritis (Acute) GERD (gastroesophageal reflux disease) (Acute) Presence of vena cava filter (Acute) Skin cancer (Acute) Surgical History Surgical History History of tiarra hole surgery (Resolved) History of knee replacement (Acute) Family History Family History Other Family history of cancer Social History Social History Substance History: No History of Abuse Second Hand Smoke Exposure: No Smoking Status: Former smoker How Often Do You Have a Drink Containing Alcohol: Monthly or less Recent Travel in [facility] within the Last 8 Weeks: No Recent Out of Country Travel within the Last 8 Weeks: No Immunization History Tetanus Immunization: <5 Years Exam Narrative Exam Narrative: GENERAL: 82-year-old woman, generally well-appearing, nontoxic. SKIN: Focused skin assessment warm/dry. HEAD: Atraumatic. Normocephalic. EYES: Pupils equal and round. No scleral icterus. No injection or drainage. ENT: No nasal bleeding or discharge. Mucous membranes pink and moist. NECK: Trachea midline. No JVD. CARDIOVASCULAR: Regular rate and rhythm. No murmur appreciated. RESPIRATORY: No accessory muscle use. Clear to auscultation. Breath sounds equal bilaterally. GASTROINTESTINAL: Abdomen soft, non-tender, nondistended. Hepatic and splenic margins not palpable. MUSCULOSKELETAL: Obvious bruising and swelling to the entirety of the right leg. Well-healing surgical incision in the anterior knee. A little bit of calf tenderness. Ecchymosis throughout the distal leg. Edema in the foot. Pulses are difficult to palpate but she seems warm and perfused. NEUROLOGICAL: Awake and alert. No obvious cranial nerve deficits. Motor grossly within normal limits. Normal speech. PSYCHIATRIC: Appropriate mood and affect; insight and judgment normal. Course Initial Documented Vital Signs Temperature 97.7 F 05/17/18 12:03 Pulse Rate 68 05/17/18 12:03 Respiratory Rate 18 05/17/18 12:03 Blood Pressure 122/60 05/17/18 12:03 Last Documented Vital Signs Temperature 97.7 F 05/17/18 12:03 Pulse Rate 72 05/17/18 12:16 Respiratory Rate 23 05/17/18 12:16 Blood Pressure 139/60 05/17/18 12:16 Pulse Oximetry 97 05/17/18 12:16 Medical Decision Making MDM Narrative Medical decision making narrative: 82-year-old woman with right lower extremity swelling, small wound about 2-3 cm in diameter, back of the calf. No DVT on ultrasound. I spoke with Dr. cox, will evlauate Medical Screen Exam Complete: Yes Emergency Medical Condition: Yes Lab Data Result diagrams: 05/17/18 12:55 05/17/18 12:55 Lab Results 05/17/18 05/17/18 05/17/18 Range/Units 12:55 12:55 12:55 WBC 7.6 (4.0-11.0) th/mm3 RBC 2.77 L (4.00-5.30) mil/mm3 Hgb 8.7 L (11.6-15.3) gm/dL Hct 26.1 L (35.0-46.0) % MCV 94.4 (80.0-100.0) fL MCH 31.6 (27.0-34.0) pg MCHC 33.4 (32.0-36.0) % RDW 14.5 (11.6-17.2) % Plt Count 526 H D (150-450) th/mm3 MPV 7.0 (7.0-11.0) fL Neut % (Auto) 62.1 (16.0-70.0) % Lymph % (Auto) 25.2 (9.0-44.0) % [place] % (Auto) 10.5 H (0.0-8.0) % Eos % (Auto) 1.6 (0.0-4.0) % Baso % (Auto) 0.6 (0.0-2.0) % Neut # (Auto) 4.8 (1.8-7.7) th/mm3 Lymph # (Auto) 1.9 (1.0-4.8) th/mm3 [place] # (Auto) 0.8 (0.0-0.9) th/mm3 Eos # (Auto) 0.1 (0.0-0.4) th/mm3 Baso # (Auto) 0.0 (0.0-0.2) th/mm3 WBC Differential . Differential Comment Auto diff final PT 10.6 (9.8-11.6) sec INR 1.0 Ratio APTT 26.4 (23.4-31.7) sec Sodium 139 (136-145) meq/L Potassium 4.1 (3.5-5.1) meq/L Chloride 104 (98-107) meq/L Carbon Dioxide 28.4 (21.0-32.0) meq/L Anion Gap 7 (5-15) meq/L BUN 10 (7-18) mg/dL Creatinine 0.56 (0.50-1.00) mg/dL Estimated GFR Greater than 89 (>89) mL/min Random Glucose 99 (74-106) mg/dL Calcium 8.0 L (8.5-10.1) mg/dL Total Bilirubin 0.6 (0.2-1.0) mg/dL AST 17 (15-37) U/L ALT 21 (10-53) U/L Alkaline Phosphatase 94 (45-117) U/L Total Protein 7.1 D (6.4-8.2) g/dL Albumin 2.4 L (3.4-5.0) g/dL Imaging Data Radiologist's impression: Venous Doppler Study 05/17/18 12:17 CONCLUSION: 1. The study is negative for lower extremity deep venous thrombosis. Discharge Plan Discharge Disposition Patient Disposition: ED Admit(ED Internal Use Only) Discharge Order Discharge Orders: ED Use Only Admit Order (Routine); Ordered 05/17/18 Ordered By: Steve Obrien Physicians Team ED Provider: Steve Obrien Other Providers: Carina Dela Cruz Rxs /Orders / Referrals /Forms Prescriptions: No Action famotidine [Pepcid] 20 mg Tablet 40 mg PO BID RF: 0 gabapentin 300 mg Capsule 900 mg PO BID RF: 0 goektulislop-hycg-wrhsa acid [Centrum Complete] 18-400 mg-mcg Tablet 1 tab PO DAILY RF: 0 apixaban [Eliquis] 2.5 mg Tablet 2.5 mg PO BID RF: 0 lisinopril 20 mg Tablet 20 mg PO DAILY RF: 0 timolol 0.25 % Drops 1 drp OPHTHALMIC (EYE) DAILY RF: 0 hydrocodone-acetaminophen 7.5-325 mg Tablet 1 tab PO Q4H PRN (Reason: Acute Pain Exception) 7 Days Qty: 42 RF: 0 lansoprazole [Prevacid] 30 mg Capsule,Delayed Release(Dr/Ec) 30 mg PO DAILY RF: 0 Discharge Interventions Interventions: Vital Signs Last Done: 12/19/18 12:16 Status ED Status: With Doctor
[2018-05-17] MEDS: Ampicillin/Sulbactam Inj 3 GM in Sodium Chloride 0.9% Inj 100 ML IV.SIG SCH ×2 (16:48→22:42)
[2018-05-17 16:57] LABS: % Iron Saturation 15.8 % (20-50)
[2018-05-17] MEDS: Gabapentin 300 MG Capsule PO SCH (20:42)
[2018-05-17] MEDS: Famotidine 20 MG Tablet PO SCH (20:43)
[2018-05-17] MEDS: Senna/Docusate Sodium 8.6/50 MG Tablet PO SCH (20:43)
[2018-05-18] MEDS: Ampicillin/Sulbactam Inj 3 GM in Sodium Chloride 0.9% Inj 100 ML IV.SIG SCH ×4 (05:09→22:07)
--- NOTE | 2018-05-18 08:50 | P.PNOP ---
Subjective Interval history: Pt feeling fairly well today but right leg still painful. Physical Exam Vital signs: Vital Signs 05/17/18 12:03 05/17/18 12:16 05/17/18 16:16 Temperature 97.7 F Pulse Rate 68 72 67 Respiratory Rate 18 23 18 Blood Pressure 122/60 139/60 126/59 L Pulse Oximetry 97 05/17/18 17:00 05/17/18 19:47 05/18/18 00:00 Temperature 97.7 F 98.5 F Pulse Rate 68 85 71 Respiratory Rate 22 12 12 Blood Pressure 126/59 L 122/56 L 117/54 L Pulse Oximetry 95 93 L 94 L 05/18/18 04:00 05/18/18 07:35 Temperature 97.8 F 98.2 F Pulse Rate 65 78 Respiratory Rate 12 18 Blood Pressure 105/54 L 107/67 Pulse Oximetry 97 98 Intake & Output 05/17/18 05/18/18 05/18/18 18:59 06:59 18:59 Intake Total 100 / 100 920 / 920 Balance 100 / 100 920 / 920 Weight 68.039 kg 68.039 kg Intake: IV 100 / 100 200 / 200 Unasyn Inj 3 GM In NS Inj 100 100 / 100 200 / 200 ML @ 200 mls/hr IV.SIG Q6H [facility] Rx#:[id number] Oral 720 / 720 Other: # Voids 3 Weight On Admission 68.039 kg - Constitutional no acute distress Results - Labs CBC & Chem 7: 05/17/18 12:55 05/17/18 12:55 Laboratory Results - last 24 hr 05/17/18 05/17/18 05/17/18 12:55 12:55 12:55 WBC 7.6 RBC 2.77 L Hgb 8.7 L Hct 26.1 L MCV 94.4 MCH 31.6 MCHC 33.4 RDW 14.5 Plt Count 526 H D MPV 7.0 Neut % (Auto) 62.1 Lymph % (Auto) 25.2 [place] % (Auto) 10.5 H Eos % (Auto) 1.6 Baso % (Auto) 0.6 Neut # (Auto) 4.8 Lymph # (Auto) 1.9 [place] # (Auto) 0.8 Eos # (Auto) 0.1 Baso # (Auto) 0.0 WBC Differential . Differential Comment Auto diff final PT 10.6 INR 1.0 APTT 26.4 Sodium 139 Potassium 4.1 Chloride 104 Carbon Dioxide 28.4 Anion Gap 7 BUN 10 Creatinine 0.56 Estimated GFR Greater than 89 Random Glucose 99 Calcium 8.0 L Iron TIBC % Saturation Total Bilirubin 0.6 AST 17 ALT 21 Alkaline Phosphatase 94 Total Protein 7.1 D Albumin 2.4 L 05/17/18 12:55 WBC RBC Hgb Hct MCV MCH MCHC RDW Plt Count MPV Neut % (Auto) Lymph % (Auto) [place] % (Auto) Eos % (Auto) Baso % (Auto) Neut # (Auto) Lymph # (Auto) [place] # (Auto) Eos # (Auto) Baso # (Auto) WBC Differential Differential Comment PT INR APTT Sodium Potassium Chloride Carbon Dioxide Anion Gap BUN Creatinine Estimated GFR Random Glucose Calcium Iron 42 L TIBC 266 % Saturation 15.8 L Total Bilirubin AST ALT Alkaline Phosphatase Total Protein Albumin - Imaging Impressions Venous Doppler Study 05/17/18 12:17 CONCLUSION: 1. The study is negative for lower extremity deep venous thrombosis. Assessment and Plan - Attending Attestation Attending Attestation: Pt being treated for cellulitis with antibiotics. Wound still present behind calf. Incision site healing well. Plan rehab when able and continued wound care. Keep pressure off back of calf. DC knee immobilizer. Need aggressive PT and OT in rehab [facility]ik.
[2018-05-18] MEDS: Multivit/Folic Acid/Minerals Chewable Tablets PO SCH (09:04)
[2018-05-18] MEDS: Gabapentin 300 MG Capsule PO SCH ×2 (09:04→20:18)
[2018-05-18] MEDS: Lisinopril 20 MG Tablet PO SCH (09:05)
[2018-05-18] MEDS: Famotidine 20 MG Tablet PO SCH ×2 (09:05→20:17)
[2018-05-18] MEDS: Senna/Docusate Sodium 8.6/50 MG Tablet PO SCH ×2 (09:05→20:17)
[2018-05-18] MEDS: Timolol 0.25% Drops 5 ML Bottle EACH EYE SCH (12:29)
--- NOTE | 2018-05-18 18:19 | P.PNIM ---
Subjective Interval history: Follow up cellulitis right lower extremity, pt with recent TKA 05/08 Patient is resting in bed. Her right heel is offloaded with a pillow. She reports burning sensation type pain to right lower extremity that started approximately 2 days ago while at rehab. Patient states she does not wish to go back to [facility] and would like to go to [facility]. No fevers or chills. Physical Exam Vital signs: Last Vital Signs Temp 97.0 F L 05/18/18 17:52 Pulse 66 05/18/18 17:52 Resp 18 05/18/18 17:52 BP 117/56 L 05/18/18 17:52 Pulse Ox 95 05/18/18 17:52 Intake & Output 05/16/18 05/17/18 05/18/18 05/19/18 06:59 06:59 06:59 06:59 Intake Total 1020 / 1020 680 / 680 Balance 1020 / 1020 680 / 680 Weight 68.039 kg Narrative: Gen: no acute distress, well-nourished, looks stated age Eyes: PERRL, pink conjunctiva without injection, anicteric Nose: no bleeding, airway patent Throat: Supple neck CV: Normal rate and regular rhythm, no murmurs gallops or rubs appreciated. Pulm: clear to auscultation and symmetric bilaterally, normal respiratory effort. GI: Normal bowel sounds, soft, non-tender, nondistended, no guarding. Musculoskeletal: Left lower extremity and ZOHAIB stockings. Right lower extremity , right knees status post surgery, incisions healing well, no open wound. There is a superficial abrasion, about 1.5 cm posterior aspect of the right calf , with 2+ edema from right foot to right calf, very tender to touch, warm, with erythema. No discharge from the wound. Neuro: AAO x3, no cranial nerve deficits, moves all 4 extremities, no focal neurologic deficits Results Labs CBC & Chem 7: 05/17/18 12:55 05/17/18 12:55 Assessment and Plan Plan Patient is a very pleasant 82 year old female with a past medical history significant for DVT, neuropathy, frequent falls status post intracranial hemorrhage in October, status post bur hole placement with evacuation of the bleed, was discharged to [facility] after hospitalization. Subsequently discharged to home December 26, 2017. She was recently admitted in the hospital 05/08/2018 for severe osteoarthritis status post right knee arthroplasty and then sent to half-way facility. She presents from the facility due to increased right lower extremity redness and pain. Right calf cellulitis -Doppler negative for DVT -continue Unasyn IV, transition to PO Augmentin at time of discharge -Ortho consulted as cellulitis on same extremity as recent surgery, rec keeping pressure off calf -PT/OT eval treat Severe right knee OA s/p right total knee arthroplasty 05/08/18 -Ortho consulted -agrees with tx plan as outlined well -incision site well approximated and healing well Anemia-stable -MCV is within normal limits including RDW -iron 42, TIBC 266 Hx DVT's anticoagulated on Eliquis -IVC filter in place -US Doppler done on the left lower extremity, negative for DVT, continue Eliquis Subdural hematoma s/p fall injury 10/2017 -Hx bur hole, stable since she has been on Eliquis Hypertension, newly diagnosed -Continue home lisinopril 20 mg daily. MDM: self Code: Full GI ppx: PO intake DVT ppx: Eliquis Discussed Condition With: RN, patient, CM Discharge Planning: Discharge to [facility] Progress Note: Quality VTE Deep Vein Thrombosis/Pulmonary Embolism Present on Admission: No
[2018-05-19] MEDS: Ampicillin/Sulbactam Inj 3 GM in Sodium Chloride 0.9% Inj 100 ML IV.SIG SCH ×2 (03:59→11:27)
[2018-05-19] MEDS: Gabapentin 300 MG Capsule PO SCH (09:42)
[2018-05-19] MEDS: Timolol 0.25% Drops 5 ML Bottle EACH EYE SCH (09:42)
[2018-05-19] MEDS: Lisinopril 20 MG Tablet PO SCH (09:42)
[2018-05-19] MEDS: Multivit/Folic Acid/Minerals Chewable Tablets PO SCH (09:43)
[2018-05-19] MEDS: Senna/Docusate Sodium 8.6/50 MG Tablet PO SCH (09:43)
[2018-05-19] MEDS: Famotidine 20 MG Tablet PO SCH (09:43)
--- NOTE | 2018-05-19 15:58 | P.DS ---
DS: Providers Date of admission: 05/18/18 13:18 Primary care physician: Justin Sarabia Consults: 05/17/18 14:14 Consult to Rehab Medicine Stat Consulting Provider: Carina Dela Cruz For STAT consult, spoke directly to:: Dr. Dela Cruz Preferred Docket Clerk:: Carina Dela Cruz Reason for Consultation: Eval s/p Knee Replacement Notified:: Service Spoke with:: Sarita Date Notified:: 05/17/18 Time Notified:: 14:17 Ordering Provider: KALIA Brief History from admission: This is an 82-year-old female with history of DVT , neuropathy, frequent falls status post intracranial hemorrhage in October, status post bur hole placement with evacuation of the bleed, was discharge to [facility] after hospitalization. Subsequently discharged to home December 26, 2017. She was recently admitted in the hospital 05/08/2018 for severe osteoarthritis status post right knee arthroplasty, she was then discharged to assisted facility. The assisted facility, there was suspicion of lower extremity DVT hence patient was sent to the hospital. Per patient, when she was discharged she has right lower extremity ecchymosis but no right lower extremity/calf pain but since doing therapy, she started having increasing severe pain of the right lower extremity, associated with increased swelling and redness. Patient denies any fever, chills, nausea, vomiting, chest pain, shortness of breath, dysuria, frequency, urgency or diarrhea. No history of blood clots in the family. DS: Summary Patient was admitted and continued on empiric IV Unasyn and seen in consultation by orthopedics. Ultrasound was negative for DVT, they recommended continued offloading of calf and physical therapy. Patient's recent TKA appears to be healing well and wound clinically improved and patient was changed to oral antibiotics., Augmentin. For 5-7 more days. Patient was otherwise clinically stable for discharge to rehab for ongoing treatment. Discharge diagnosis: Acute right calf cellulitis with pressure ulcer right calf Post right TKA History DVT on chronic Eliquis History of subdural hematoma post fall Normocytic anemia Hypertension Glaucoma Time Spent with Patient Total time spent providing and/or coordinating discharge services: Quality: VTE Deep Vein Thrombosis/Pulmonary Embolism Present on Admission: No Exam Narrative Exam Narrative: Pleasant 82-year-old white female Awake alert and oriented x3 Heart S1-S2 regular with 1/6 murmur Lungs clear bilateral no wheeze no rhonchi Abdomen soft nondistended positive bowel sounds Extremities right knee TKA wound clean positive edema moderate tenderness no erythema right calf posterior aspect large area of eschar without significant purulence drainage peripheral edema is improved, chronic venous stasis right lower extremity pulses palpable Results Impressions ITS Impressions Venous Doppler Study 05/17/18 12:17 CONCLUSION: 1. The study is negative for lower extremity deep venous thrombosis. Discharge Plan Discharge Disposition Patient Disposition: [facility] Rehab Inpatient Discharge Condition Condition: Good Discharge Order Discharge Orders: Discharge Order (Routine); Ordered 05/19/18 Ordered By: Iveth Herrera Physicians Team Attending Provider: Iveth Herrera Other Providers: Carina Dela Cruz Rxs /Orders / Referrals /Forms Prescriptions: New hydrocodone-acetaminophen 10-325 mg Tablet 1 tab PO Q4H PRN (Reason: Pain Scale 6 To 10) 3 Days Qty: 14 RF: 0 lactulose 20 gram/30 mL Solution 30 ml PO DAILY PRN (Reason: Severe Consitipation) Qty: 0 RF: 0 Continue gabapentin 300 mg Capsule 900 mg PO BID RF: 0 [id number] acid [Centrum Complete] 18-400 mg-mcg Tablet 1 tab PO DAILY RF: 0 apixaban [Eliquis] 2.5 mg Tablet 2.5 mg PO BID RF: 0 lisinopril 20 mg Tablet 20 mg PO DAILY RF: 0 timolol 0.25 % Drops 1 drp OPHTHALMIC (EYE) DAILY RF: 0 lansoprazole [Prevacid] 30 mg Capsule,Delayed Release(Dr/Ec) 30 mg PO DAILY RF: 0 Discontinued famotidine [Pepcid] 20 mg Tablet 40 mg PO BID RF: 0 Referrals: Justin Sarabia [Other] - See Instructions Discharge Instructions Patient Printed Instructions: Hydrocodone/Acetaminophen (By mouth), Lactulose ( By mouth) Post Discharge Care Plan Care Plan Goals: Your Health Problems: Goals to Promote Your Health: * To prevent worsening of your condition * To maintain your health at the optimal level Directions to Meet Your Goals: * Take your medications as prescribed * Follow your dietary instruction * Follow activity as directed * Keep your appointments as scheduled * Take your immunizations and boosters as scheduled * If your symptoms worsen call your PCP * If no PCP go to Urgent Care or Emergency Room Smoking is dangerous to your health. Avoid second hand smoke. You may reach the 24-hour crisis hotline for domestic abuse at . Status ED Status: Left Department Discharge Information Discharge Date/Time: 05/19/18 12:50
== END 2018-05-19 12:50 ==
LOC: NEPE 12:01 → NEDA 12:01 → NEPFCDU 18:26
PROVIDERS: ADMIT Internal Medicine; ATTEND Internal Medicine
DX: I10 Essential (primary) hypertension; L03.115 Cellulitis of right lower limb; M17.11 Unilateral primary osteoarthritis, right knee; G62.9 Polyneuropathy, unspecified; H40.9 Unspecified glaucoma; R01.1 Cardiac murmur, unspecified; R73.03 Prediabetes; Z87.891 Personal history of nicotine dependence; Z86.73 Personal history of transient ischemic attack (TIA), and cerebral infarction without residual deficits; R60.0 Localized edema; Z85.828 Personal history of other malignant neoplasm of skin; R29.6 Repeated falls; Z79.899 Other long term (current) drug therapy; Z96.651 Presence of right artificial knee joint; K21.9 Gastro-esophageal reflux disease without esophagitis; D64.9 Anemia, unspecified; L89.90 Pressure ulcer of unspecified site, unspecified stage; Z79.01 Long term (current) use of anticoagulants; Z86.718 Personal history of other venous thrombosis and embolism; M54.9 Dorsalgia, unspecified; Z80.9 Family history of malignant neoplasm, unspecified